=== PATIENT | female | born 1980 | race Caucasian/White ===

== ENCOUNTER 2017-07-22 18:13 | Emergency (ER) | payer OTHER, MEDICARE ==
[~2017-07-22] VITALS: Ht 157.5 cm; Wt 89.4 kg
[~2017-07-22 18:13] MED LIST: ALBUTEROL SULF8.5 GM INH; AMBIEN10 MG PO; AMOXICILLIN500 MG PO; AUGMENTIN 875-1 EACH PO; BENADRYL25 M1 PO; BYSTOLIC20 MG PO; CARAFATE1 GM/10 ML PO; COQ-10100 MG PO; COZAAR100 MG PO; CYMBALTA30 MG PO; CYMBALTA60 MG PO; D-RIBOSE1 GM PO; DIOVAN160 MG PO; EFFEXOR XR150 MG PO; FEOSOL325 MG PO; FOLIC ACID1 MG PO; FUROSEMIDE40 MG PO; GABAPENTIN300 MG PO; HUMIRA40 MG/0.8 SQ; IMURAN50 MG PO; L-CARNITINE500 M1 PO; LASIX40 MG PO; LEVOCETIRIZINE D5 MG PO; LOSARTAN POTAS100 MG PO; LYRICA75 MG PO; Lactobacillus Acidophilus PO; MAGNESIUM OXID400 MG PO; MELOXICAM15 MG PO; METOPROLOL TART50 MG PO; MICROBID PO; MOBIC15 MG PO; MONTELUKAST SOD10 MG PO; NEXIUM40 MG PO; ONDANSETRON HCL8 MG PO; PANTOPRAZOLE SO20 MG PO; PLAQUENIL200 MG PO; POTASSIUM CHLO10 MEQ PO; RANITIDINE HCL300 M1 PO; ROPINIROLE HCL1 MG PO; SEROQUEL50 MG PO; TIZANIDINE HCL4 MG PO; TOPAMAX100 MG PO; TOPROL XL50 MG PO; TRAZODONE HCL100 MG PO; ULTRAM50 MG PO; VALTREX500 MG PO; WELLBUTRIN100 MG PO; ZOFRAN ODT4 MG SL
--- OUTSIDE RECORDS SUMMARY | 2017-07-22 18:17 | XMS REPORT ---
Author Author [facility] Address Unknown Phone Unavailable Care Team Providers Care Account Executive Software Sales Name Role Phone DARRYL JORDAN Unavailable Unavailable Problems This patient has no known problems. Allergies, Adverse Reactions, Alerts This patient has no known allergies or adverse reactions. Medications This patient has no known medications. Results Test Description Test Time Test Comments Text Results Atomic Results Result Comments URINE CULTURE 2016-08-13 11:23:00 CULTURE (BEAKER) (test ozzu=0930) 40-49,000 col/mL skin twin CBC W/PLT COUNT & AUTO [id number] 06:35:00* Test Item Value Reference Range Comments WHITE BLOOD CELL COUNT (BEAKER) (test naed=355) 10.0 K/ L 4.0-10.0 RED BLOOD CELL COUNT (BEAKER) (test fffz=606) 4.16 M/ L 4.00-5.00 HEMOGLOBIN (BEAKER) (test muie=349) 13.0 GM/DL 12.0-15.0 HEMATOCRIT (BEAKER) (test nowg=873) 41.1 % 36.0-45.0 MEAN CORPUSCULAR VOLUME (BEAKER) (test wdpx=064) 98.7 fL 82.0-99.0 MEAN CORPUSCULAR HEMOGLOBIN (BEAKER) (test eych=738) 31.2 pg 27.0-33.0 MEAN CORPUSCULAR HEMOGLOBIN CONC (BEAKER) (test zhze=753) 31.6 GM/DL 32.0- 36.0 RED CELL DISTRIBUTION WIDTH (BEAKER) (test gvhv=337) 12.5 % 10.3-14.2 PLATELET COUNT (BEAKER) (test afnk=126) 315 K/CU MM 150-430 MEAN PLATELET VOLUME (BEAKER) (test mafo=763) 7.9 fL 6.5-10.5 NUCLEATED RED BLOOD CELLS (BEAKER) (test akbs=632) 0 /100 WBC 0-0 NEUTROPHILS RELATIVE PERCENT (BEAKER) (test atrw=640) 65 % LYMPHOCYTES RELATIVE PERCENT (BEAKER) (test qxzl=356) 28 % MONOCYTES RELATIVE PERCENT (BEAKER) (test rsgw=433) 6 % EOSINOPHILS RELATIVE PERCENT (BEAKER) (test ztsp=182) 1 % BASOPHILS RELATIVE PERCENT (BEAKER) (test wnry=691) 0 % NEUTROPHILS ABSOLUTE COUNT (BEAKER) (test dqxo=963) 6.47 K/ L 1.80-8.00 LYMPHOCYTES ABSOLUTE COUNT (BEAKER) (test crar=366) 2.79 K/ L 1.48-4.50 MONOCYTES ABSOLUTE COUNT (BEAKER) (test jrkw=215) 0.60 K/ L 0.00-1.30 EOSINOPHILS ABSOLUTE COUNT (BEAKER) (test vayx=407) 0.12 K/ L 0.00-0.50 BASOPHILS ABSOLUTE COUNT (BEAKER) (test vmee=649) 0.04 K/ L 0.00-0.20 0.00BASIC METABOLIC [id number] 06:25:00* Test Item Value Reference Range Comments SODIUM (BEAKER) (test ykgk=690) 138 meq/L 136-145 POTASSIUM (BEAKER) (test vfok=352) 4.1 meq/L 3.5-5.1 CHLORIDE (BEAKER) (test rsgd=640) 104 meq/L 98-107 CO2 (BEAKER) (test ccsz=563) 22 meq/L 22-29 BLOOD UREA NITROGEN (BEAKER) (test mvse=372) 7 mg/dL 7-21 CREATININE (BEAKER) (test bwjw=723) 0.73 mg/dL 0.57-1.25 GLUCOSE RANDOM (BEAKER) (test bayh=749) 118 mg/dL 70-105 CALCIUM (BEAKER) (test oiqc=804) 9.1 mg/dL 8.4-10.2 EGFR (BEAKER) (test wfab=0415) 90 mL/min/1.73 sq m ESTIMATED GFR IS NOT ACCURATE CREATININE CLEARANCE IN PREDICTING GLOMERULAR FILTRATION RATE. ESTIMATED GFR IS NOT APPLICABLE FOR DIALYSIS PATIENTS. URINALYSIS W/ [id number] 16:28:00* Test Item Value Reference Range Comments COLOR (BEAKER) (test vkia=512) Yellow CLARITY (BEAKER) (test xoji=098) Clear SPECIFIC GRAVITY UA (BEAKER) (test ibmb=582) 1.022 1.001-1.035 PH UA (BEAKER) (test gcqo=714) 6.5 5.0-8.0 PROTEIN UA (BEAKER) (test mmiq=924) 20 mg/dL Negative GLUCOSE UA (BEAKER) (test tjqe=331) Negative Negative KETONES UA (BEAKER) (test yghb=019) Negative Negative BILIRUBIN UA (BEAKER) (test keoj=399) Negative Negative BLOOD UA (BEAKER) (test hroa=543) Negative Negative NITRITE UA (BEAKER) (test plvq=940) Negative Negative LEUKOCYTE ESTERASE UA (BEAKER) (test oche=235) Small Negative UROBILINOGEN UA (BEAKER) (test gqbb=923) 0.2 mg/dL 0.2-1.0 RBC UA (BEAKER) (test xnfy=461) 1 /HPF WBC UA (BEAKER) (test reyk=425) 3 /HPF MUCUS (BEAKER) (test pzhe=7128) Few SQUAMOUS EPITHELIAL (BEAKER) (test zomz=778) 3 /HPF SOURCE(BEAKER) (test bwvn=5250) Urine, Voided BASIC METABOLIC [id number] 14:55:00* Test Item Value Reference Range Comments SODIUM (BEAKER) (test rswg=273) 139 meq/L 136-145 POTASSIUM (BEAKER) (test cxcv=504) 4.0 meq/L 3.5-5.1 CHLORIDE (BEAKER) (test rfnk=157) 105 meq/L 98-107 CO2 (BEAKER) (test pcag=210) 25 meq/L 22-29 BLOOD UREA NITROGEN (BEAKER) (test gkgn=599) 10 mg/dL 7-21 CREATININE (BEAKER) (test ahrh=749) 0.77 mg/dL 0.57-1.25 GLUCOSE RANDOM (BEAKER) (test iwvn=990) 117 mg/dL 70-105 CALCIUM (BEAKER) (test uuqc=619) 9.2 mg/dL 8.4-10.2 EGFR (BEAKER) (test wldl=2844) 85 mL/min/1.73 sq m ESTIMATED GFR IS NOT ACCURATE CREATININE CLEARANCE IN PREDICTING GLOMERULAR FILTRATION RATE. ESTIMATED GFR IS NOT APPLICABLE FOR DIALYSIS PATIENTS. CBC W/PLT COUNT & AUTO [id number] 14:52:00* Test Item Value Reference Range Comments WHITE BLOOD CELL COUNT (BEAKER) (test exzq=893) 11.6 K/ L 4.0-10.0 RED BLOOD CELL COUNT (BEAKER) (test ywae=197) 3.94 M/ L 4.00-5.00 HEMOGLOBIN (BEAKER) (test cyrw=936) 12.7 GM/DL 12.0-15.0 HEMATOCRIT (BEAKER) (test fomv=971) 37.0 % 36.0-45.0 MEAN CORPUSCULAR VOLUME (BEAKER) (test czfb=440) 94.0 fL 82.0-99.0 MEAN CORPUSCULAR HEMOGLOBIN (BEAKER) (test wsps=636) 32.2 pg 27.0-33.0 MEAN CORPUSCULAR HEMOGLOBIN CONC (BEAKER) (test zkvj=130) 34.2 GM/DL 32.0- 36.0 RED CELL DISTRIBUTION WIDTH (BEAKER) (test oofe=715) 13.1 % 10.3-14.2 PLATELET COUNT (BEAKER) (test vuaq=575) 302 K/CU MM 150-430 MEAN PLATELET VOLUME (BEAKER) (test qdpu=592) 7.7 fL 6.5-10.5 NUCLEATED RED BLOOD CELLS (BEAKER) (test zgcy=795) 0 /100 WBC 0-0 NEUTROPHILS RELATIVE PERCENT (BEAKER) (test uiwv=786) 73 % LYMPHOCYTES RELATIVE PERCENT (BEAKER) (test aneq=509) 21 % MONOCYTES RELATIVE PERCENT (BEAKER) (test pkgq=185) 5 % EOSINOPHILS RELATIVE PERCENT (BEAKER) (test jrjn=374) 1 % BASOPHILS RELATIVE PERCENT (BEAKER) (test yuat=705) 0 % NEUTROPHILS ABSOLUTE COUNT (BEAKER) (test ecjm=867) 8.40 K/ L 1.80-8.00 LYMPHOCYTES ABSOLUTE COUNT (BEAKER) (test xefa=986) 2.43 K/ L 1.48-4.50 MONOCYTES ABSOLUTE COUNT (BEAKER) (test arqn=507) 0.63 K/ L 0.00-1.30 EOSINOPHILS ABSOLUTE COUNT (BEAKER) (test yprm=713) 0.09 K/ L 0.00-0.50 BASOPHILS ABSOLUTE COUNT (BEAKER) (test hsof=182) 0.04 K/ L 0.00-0.20 0.00
--- OUTSIDE RECORDS SUMMARY | 2017-07-22 18:17 | XMS REPORT | Clinical Summary ---
Author Author [facility] Address Unknown Phone Unavailable Care Team Providers Care Cloud Consultant Name Role Phone PCP Unavailable Allergies Active Allergy Reactions Severity Noted Date Comments Ciprofloxacin Shortness Of Breath, Rash High 10/15/2015 Levofloxacin Shortness Of Breath, Rash High 08/11/2016 Current Medications Prescription Sig. Disp. Refills Start End Date Status Date predniSONE (DELTASONE) 5 Take 5 mg by mouth daily. Active MG tablet gabapentin (NEURONTIN) Take 1,200 mg by mouth 3 Active 600 MG tablet (three) times daily . rOPINIRole (REQUIP) 1 MG Take 1 mg by mouth 3 Active tablet (three) times daily. ondansetron (ZOFRAN) 8 MG Take 8 mg by mouth every Active tablet 8 (eight) hours as needed for Nausea. ranitidine (ZANTAC) 300 Take 300 mg by mouth Active MG tablet nightly. pregabalin (LYRICA) 100 Take 100 mg by mouth 3 Active MG capsuleIndications: (three) times daily. Fibromyalgia azaTHIOprine (IMURAN) 50 Take 50 mg by mouth 3 Active mg tablet (three) times daily. esomeprazole (NEXIUM) 40 Take 40 mg by mouth Active MG capsule daily. cyanocobalamin (VITAMIN Inject 1,000 mcg Active B-12) 1,000 mcg/mL intramuscularly every 30 injectionIndications: (thirty) days Next dose Vitamin B12 Deficiency due 08/12/16. dicyclomine (BENTYL) 10 Take 10 mg by mouth 4 Active MG capsule (four) times daily before meals and nightly. golimumab (SIMPONI) 50 Inject 50 mg Active mg/0.5 mL PnIj subcutaneously every 28 days On hold since june. valACYclovir (VALTREX) Take 500 mg by mouth Active 500 MG tablet daily. hydroxychloroquine Take 400 mg by mouth Active (PLAQUENIL) 200 mg tablet daily . amoxicillin (AMOXIL) 250 Take 250 mg by mouth Active MG capsule daily. sulfaSALAzine Take 500 mg by mouth 2 Active (AZULFIDINE) 500 mg (two) times daily. tablet baclofen (LIORESAL) 20 MG Take 20 mg by mouth 3 Active tablet (three) times daily. metoprolol (LOPRESSOR) Take 100 mg by mouth 2 Active 100 MG tablet (two) times daily. torsemide (DEMADEX) 20 MG Take 20 mg by mouth Active tablet daily. potassium chloride Take 10 mEq by mouth 2 Active (KLOR-CON) 10 MEQ CR (two) times daily. tablet acetaminophen-codeine Take 1 tablet by mouth Active (TYLENOL #3) 300-30 mg every 4 (four) hours as per tablet needed for Pain. albuterol HFA (VENTOLIN Inhale 2 puffs by mouth 1 Inhaler 0 10/16/19 10/16/19 HFA) 90 mcg/actuation via inhaler every 4 16 17 inhaler (four) hours as needed for Wheezing. sulfamethoxazole-trimetho Take 1 tablet (160 mg of 10 tablet 0 08/20/19 prim (BACTRIM DS) 800-160 trimethoprim total) by 17 17 mg per tablet mouth 2 (two) times daily for 5 days. Active Problems Problem Noted Date Kidney stone 08/11/2016 Encounters Date Type Specialty Care Team Description 10/15/2016 [facility] Radiology Mica Valentine MD Recurrent UTI Encounter 10/13/2016 Outside Orders Central Scheduling Mica Valentine MD Recurrent UTI (Primary Dx) 08/26/2016 Procedure visit Radiology Omaira Easton Ankylosing spondylitis ([facility]) 08/21/2016 Outside Orders Radiology Omaira Easton Ankylosing spondylitis ([facility]) (Primary Dx) 08/13/2016 Hospital Mich Kerr MD Encounter 08/13/2016 Surgery Mich Kerr MD CYSTOSCOPY,URETEROSCOPY W/ LASER LITHOTRIPSY 08/12/2016 Anesthesia Wilma Olivia Event MD 08/11/2016 [facility] General Internal Medicine Mich Kerr MD - Encounter 08/14/2016 after 07/21/2016 Social History Tobacco Use Types Packs/Day Years Used Date Never Smoker Alcohol Use Drinks/Week oz/Week Comments No Sex Assigned at Date Recorded Not on file Last Filed Vital Signs Vital Sign Reading Time Taken Blood Pressure 148/81 10/15/2016 9:15 AM CDT Pulse 84 10/15/2016 7:32 AM CDT Temperature 36.8 C (98.3 F) 10/15/2016 7:32 AM CDT Respiratory Rate 20 10/15/2016 9:15 AM CDT Oxygen Saturation 98% 10/15/2016 9:15 AM CDT Inhaled Oxygen - - Concentration Weight 128.5 kg (283 lb 6.4 oz) 08/11/2016 1:25 PM SHALE PROCESSING TECHNICIAN Height 158.5 cm (5' 2.4") 08/11/2016 1:25 PM SHALE PROCESSING TECHNICIAN Body Mass Index 51.17 08/11/2016 1:25 PM SHALE PROCESSING TECHNICIAN Plan of Treatment Not on file Implants Implanted Type Area Horse Stud Worker Device Expiration Model / Identifier Date Serial / Lot Stent Uret Cntour Inj [id number] Uro Stent [employer] 08/12/2017 [id number] / [id number] - [id number] SCI:UROLOGY/COST ESTIMATOR / [place]planted: Qty: 1 on 08/13/2016 [place] [facility] [id number] Mich Kerr MD Procedures Procedure Name Priority Date/Time Associated Diagnosis Comments CYSTOSCOPY,INSERTION 08/13/2016 Kidney stones URETERAL STENTS 2:00 PM SHALE PROCESSING TECHNICIAN CYSTOSCOPY,URETEROSCOPY 08/13/2016 Kidney stones W/ LASER LITHOTRIPSY 2:00 PM SHALE PROCESSING TECHNICIAN after 07/21/2016 Results * IR Picc Line Placement (10/15/2016 9:15 AM) Specimen Performing Laboratory [facility] Narrative FINAL REPORT PICC line placement 10/15/2016 HISTORY: The long-term antibiotics Anesthesia: 2% lidocaine Approach: Left basilic vein Modality: Ultrasound and fluoroscopy, fluoroscopy time: 0.4 minutes, total dose: 14 mGy, air kerma dose method TECHNIQUE: This procedure was performed after obtaining written informed consent using all elements maximal sterile barrier technique without immediate postprocedural complication. The basilic vein was identified with ultrasound and found be patent. Images of the patent vein were recorded on PACS. The basilic vein was accessed with real-time ultrasound guidance followed by placement of a guidewire centrally. Surgically, 4 [place]ian single lumen PICC line was placed with its tip at the cavoatrial junction secured in place by means of sutures.. CONCLUSION: Placement of left arm PICC line Signed: Lyndon Lezama MD Report Verified Date/Time:10/23/2016 17:31:07 Reading Location: [place] [address] Angio Body Reading Room Procedure Note Interface, External Ris In - 10/23/2016 5:33 PM CDT FINAL REPORT PICC line placement 10/15/2016 HISTORY: The long-term antibiotics Anesthesia: 2% lidocaine Approach: Left basilic vein Modality: Ultrasound and fluoroscopy, fluoroscopy time: 0.4 minutes, total dose: 14 mGy, air kerma dose method TECHNIQUE: This procedure was performed after obtaining written informed consent using all elements maximal sterile barrier technique without immediate postprocedural complication. The basilic vein was identified with ultrasound and found be patent. Images of the patent vein were recorded on PACS. The basilic vein was accessed with real-time ultrasound guidance followed by placement of a guidewire centrally. Surgically, 4 [place]ian single lumen PICC line was placed with its tip at the cavoatrial junction secured in place by means of sutures.. CONCLUSION: Placement of left arm PICC line Signed: Lyndon Lezama MD Report Verified Date/Time: 10/23/2016 17:31:07 Reading Location: [place] [address] Angio Body Reading Room * MR spine lumbar without IV contrast (08/26/2016 5:22 PM) Specimen Performing Laboratory [facility] Narrative FINAL REPORT MR Lumbar spine without contrast INDICATION: Ankylosing spondylosis. TECHNIQUE: MRI of the lumbar spine utilizing the following sequences: Sagittal T1, T2, STIR; axial T1 and T2 COMPARISON: None available. FINDINGS: Bilateral sacroiliac joint partially imaged signal abnormalities could indicate sacroiliitis. Slight anterior longitudinal ligament conspicuity and vertebral squaring are nonspecific but can be seen with ankylosing spondylitis. Vertebral height and alignment are maintained. There is nonspecific heterogeneous marrow signal with incidental small hemangioma at L3. The conus medullaris is unremarkable and terminates at L1-2. The spinal canal is borderline congenitally narrow. T12-L1: Unremarkable L1-2: Unremarkable L2-3: Unremarkable L3-4: Mild disc bulge extending into the foraminal regions, bilateral facet arthropathy and ligamentous thickening with mild left greater than right foraminal stenosis. No significant canal stenosis. L4-5: Mild disc bulge. Bilateral facet arthropathy and ligamentous thickening contributing to mild canal stenosis and mild bilateral foraminal stenosis. L5-S1: Disc bulge, broad based central disc protrusion indenting the thecal sac, and mild facet arthropathy with mild right foraminal stenosis. No significant canal or left foraminal stenosis. There is paraspinal muscle deconditioning. A small left renal T2 hyperintense lesion is incompletely characterized, but statistically likely a cyst. IMPRESSION: 1. Incompletely imaged sacroiliac joint signal alterations which could reflect sacroiliitis given clinical history of ankylosing spondylitis. Dedicated pelvic imaging can be obtained as clinically warranted. 2. Mild degenerative changes with multifactorial mild L4-5 spinal canal stenosis. 3. Neural foraminal stenoses as detailed above. Advise correlation with radiculopathic symptoms. Signed: Fauzia Morrison MD Report Verified Date/Time:08/26/2016 17:35:06 Reading Location: [facility] Radiology Reading Room Procedure Note Interface, External Ris In - 08/26/2016 5:37 PM CDT FINAL REPORT MR Lumbar spine without contrast INDICATION: Ankylosing spondylosis. TECHNIQUE: MRI of the lumbar spine utilizing the following sequences: Sagittal T1, T2, STIR; axial T1 and T2 COMPARISON: None available. FINDINGS: Bilateral sacroiliac joint partially imaged signal abnormalities could indicate sacroiliitis. Slight anterior longitudinal ligament conspicuity and vertebral squaring are nonspecific but can be seen with ankylosing spondylitis. Vertebral height and alignment are maintained. There is nonspecific heterogeneous marrow signal with incidental small hemangioma at L3. The conus medullaris is unremarkable and terminates at L1-2. The spinal canal is borderline congenitally narrow. T12-L1: Unremarkable L1-2: Unremarkable L2-3: Unremarkable L3-4: Mild disc bulge extending into the foraminal regions, bilateral facet arthropathy and ligamentous thickening with mild left greater than right foraminal stenosis. No significant canal stenosis. L4-5: Mild disc bulge. Bilateral facet arthropathy and ligamentous thickening contributing to mild canal stenosis and mild bilateral foraminal stenosis. L5-S1: Disc bulge, broad based central disc protrusion indenting the thecal sac, and mild facet arthropathy with mild right foraminal stenosis. No significant canal or left foraminal stenosis. There is paraspinal muscle deconditioning. A small left renal T2 hyperintense lesion is incompletely characterized, but statistically likely a cyst. IMPRESSION: 1. Incompletely imaged sacroiliac joint signal alterations which could reflect sacroiliitis given clinical history of ankylosing spondylitis. Dedicated pelvic imaging can be obtained as clinically warranted. 2. Mild degenerative changes with multifactorial mild L4-5 spinal canal stenosis. 3. Neural foraminal stenoses as detailed above. Advise correlation with radiculopathic symptoms. Signed: Fauzia Morrison MD Report Verified Date/Time: 08/26/2016 17:35:06 Reading Location: [facility] Radiology Reading Room * [place] Company Doctor in [place] 30 minute increments (08/13/2016 4:05 PM) Specimen Performing Laboratory [facility] Narrative FINAL REPORT 66 abdomen fluoroscopic images. Fluoroscopy time 1.09 minutes. Fluoroscopy was not performed by the undersigned. Refer to procedure notes for diagnostic and therapeutic detail. There is eventual right ureteral stent placement. Signed: Zi Pandya MD Report Verified Date/Time:08/13/2016 16:52:37 Reading Location: [facility] C013 Consult Reading Room Procedure Note Interface, External Ris In - 08/13/2016 4:54 PM SHALE PROCESSING TECHNICIAN FINAL REPORT 66 abdomen fluoroscopic images. Fluoroscopy time 1.09 minutes. Fluoroscopy was not performed by the undersigned. Refer to procedure notes for diagnostic and therapeutic detail. There is eventual right ureteral stent placement. Signed: Zi Pandya MD Report Verified Date/Time: 08/13/2016 16:52:37 Reading Location: [facility] [id number] Consult Reading Room * CBC with platelet count + automated diff (08/12/2016 5:21 AM) Only the most recent of 2 results within the time period is included. Component Value Ref Range WBC 10.0 4.0 - 10.0 K/ L RBC 4.16 4.00 - 5.00 M/ L Hemoglobin 13.0 12.0 - 15.0 GM/DL Hematocrit 41.1 36.0 - 45.0 % MCV 98.7 82.0 - 99.0 fL MCH 31.2 27.0 - 33.0 pg MCHC 31.6 (L) 32.0 - 36.0 GM/DL RDW 12.5 10.3 - 14.2 % Platelets 315 150 - 430 K/CU MM MPV 7.9 6.5 - 10.5 fL nRBC 0 0 - 0 /100 WBC % Neutros 65 % % Lymphs 28 % % Monos 6 % % Eos 1 % % Baso 0 % # Neutros 6.47 1.80 - 8.00 K/ L # Lymphs 2.79 1.48 - 4.50 K/ L # Monos 0.60 0.00 - 1.30 K/ L # Eos 0.12 0.00 - 0.50 K/ L # Baso 0.04 0.00 - 0.20 K/ L Specimen Performing Laboratory Blood [facility] [address] [address] Narrative 0.00 * CBC with platelet count + automated diff (08/12/2016 5:21 AM) Only the most recent of 2 results within the time period is included. Specimen Performing Laboratory Blood Narrative The following orders were created for panel order CBC with platelet count + automated diff. Procedure Abnormality Status --------- - ------ CBC with platelet count ...[[id number]]AbnormalFinal result Please view results for these tests on the individual orders. * Basic Metabolic Panel (08/12/2016 5:21 AM) Only the most recent of 2 results within the time period is included. Component Value Ref Range Sodium 138 136 - 145 meq/L Potassium 4.1 3.5 - 5.1 meq/L Chloride 104 98 - 107 meq/L CO2 22 22 - 29 meq/L BUN 7 7 - 21 mg/dL Creatinine 0.73 0.57 - 1.25 mg/dL Glucose 118 (H) 70 - 105 mg/dL Calcium 9.1 8.4 - 10.2 mg/dL EGFR 90Comment: ESTIMATED GFR IS NOT ACCURATE mL/min/1.73 sq m CREATININE CLEARANCE IN PREDICTING GLOMERULAR FILTRATION RATE. ESTIMATED GFR IS NOT APPLICABLE FOR DIALYSIS PATIENTS. Specimen Performing Laboratory Blood [address] [address] * Urinalysis w/ Microscopic (08/11/2016 3:30 PM) Component Value Ref Range Color, UA Yellow Clarity, UA Clear Specific [place], UA 1.022 1.001 - 1.035 pH, UA 6.5 5.0 - 8.0 Protein, UA 20 mg/dL (A) Negative Glucose, UA Negative Negative Ketones, UA Negative Negative Bilirubin, UA Negative Negative Blood, UA Negative Negative Nitrite, UA Negative Negative Leukocytes, UA Small (A) Negative Urobilinogen, UA 0.2 0.2 - 1.0 mg/dL RBC, UA 1 /HPF WBC, UA 3 /HPF Mucus Few Squam Epithel, UA 3 /HPF Specimen Source Urine, Voided Specimen Performing Laboratory Urine - Urine, Voided [address] [address] * Urine culture (08/11/2016 3:30 PM) Component Value Ref Range Result 40-49,000 col/mL skin twin Specimen Performing Laboratory Urine - Urine, Voided [address] [address] after 07/21/2016
--- OUTSIDE RECORDS SUMMARY | 2017-07-22 18:17 | XMS REPORT | Clinical Summary ---
Author Author [facility] Organization [facility] Address Unknown Phone Unavailable Care Team Providers Care Architectural Examiner Name Role Phone Alcon Gonzales DO PCP Allergies Active Allergy Reactions Severity Noted Date Comments Ciprofloxacin Rash, Shortness Of Breath High 10/15/2015 Adhesive Tape-Silicones Itching, Rash Low 04/13/2017 Levofloxacin Rash Low 02/25/2017 Swelling and trouble breathing Current Medications Prescription Sig. Disp. Refills Start End Date Status Date valACYclovir (VALTREX) Take 500 mg by mouth Active 500 MG tablet nightly. fluticasone (FLONASE) 50 2 sprays by Each Nare Active mcg/actuation nasal spray route every morning. levocetirizine (XYZAL) 5 Take 5 mg by mouth every Active MG tablet morning. cyanocobalamin 1,000 Inject 1,000 mcg into the Active mcg/mL injection shoulder, thigh, or buttocks every 30 (thirty) days. gabapentin (NEURONTIN) Take 1,200 mg by mouth 3 Active 600 mg tablet (three) times a day. rOPINIRole (REQUIP) 1 MG Take 1 mg by mouth 3 Active tablet (three) times a day. pregabalin (LYRICA) 100 Take 100 mg by mouth 3 Active MG capsule (three) times a day. baclofen (LIORESAL) 20 MG Take 20 mg by mouth 3 Active tablet (three) times a day as needed for muscle spasms. golimumab (SIMPONI) 50 Inject 1 Dose under the Active mg/0.5 mL syringe skin every 30 (thirty) days. metoprolol tartrate Take 100 mg by mouth 2 Active (LOPRESSOR) 100 mg tablet (two) times a day. montelukast (SINGULAIR) Take 10 mg by mouth Active 10 mg tablet nightly. hydroxychloroquine Take 200 mg by mouth 2 Active (PLAQUENIL) 200 mg tablet (two) times a day. potassium chloride Take 10 mEq by mouth 2 Active (KLOR-CON) 10 MEQ CR (two) times a day. tablet FOLIC ACID ORAL Take 10 mg by mouth every Active morning. torsemide (DEMADEX) 20 MG Take 20 mg by mouth every Active tablet morning. spironolactone Take 25 mg by mouth every Active (ALDACTONE) 25 MG tablet morning. omeprazole (PriLOSEC) 40 Take 1 capsule (40 mg 30 capsule 5 04/13/20 10/11/19 Active MG capsuleIndications: total) by mouth daily for 17 18 Morbid obesity due to 180 days. excess calories, Benign essential hypertension, Obstructive sleep apnea syndrome, Gastroesophageal reflux disease without esophagitis, Hyperlipidemia, unspecified hyperlipidemia type azaTHIOprine (IMURAN) 50 Take 50 mg by mouth Active mg tablet daily. HYDROcodone-acetaminophen TAKE 15 ML(S) BY MOUTH 0 04/17/20 Active (HYCET) 2.5-108.3 mg/5 mL EVERY 6 HOURS NEEDED 17 solution FOR PAIN. NON FORMULARY Bariatric multivitamin, Active iron, calcium CALCIUM CARBONATE/VITAMIN Take by mouth. Active D3 (CALCIUM 500 + D ORAL) IRON,CARB/VIT C/VIT Take by mouth. Active B12/FOLIC (IRON 100 PLUS ORAL) ondansetron (ZOFRAN) 8 MG Take 8 mg by mouth every 05/29/20 Discontin tablet 8 (eight) hours as needed 17 ued for nausea or vomiting. eszopiclone (LUNESTA) 2 Take 2 mg by mouth 04/21/20 Discontin MG tablet nightly. Take immediately 17 ued before bedtime ranitidine (ZANTAC) 300 Take 300 mg by mouth 04/29/20 Discontin MG capsule every evening. 17 ued esomeprazole (NexIUM) 40 Take 40 mg by mouth daily 04/29/20 Discontin MG capsule before breakfast. 17 ued dicyclomine (BENTYL) 10 Take 10 mg by mouth 4 04/29/20 Discontin MG capsule (four) times a day before 17 ued meals and nightly. DULoxetine (CYMBALTA) 30 Take 30 mg by mouth every 05/15/20 Discontin MG capsule morning. 17 ued sulfaSALAzine Take 500 mg by mouth 2 04/21/20 Discontin (AZULFIDINE) 500 mg (two) times a day. 17 ued tablet enoxaparin (LOVENOX) 40 Inject 0.4 mL (40 mg 14 Syringe 0 04/13/20 04/27/20 mg/0.4 mL total) under the skin 17 17 syringeIndications: daily for 14 days. Morbid obesity due to excess calories, Benign essential hypertension, Obstructive sleep apnea syndrome, Gastroesophageal reflux disease without esophagitis, Hyperlipidemia, unspecified hyperlipidemia type ondansetron (ZOFRAN, Take 1 tablet (4 mg 20 tablet 0 04/13/2009/01 Discontin HYDROCHLORIDE,) 4 MG total) by mouth every 8 17 17 ued tabletIndications: Morbid (eight) hours as needed obesity due to excess for nausea or vomiting. calories, Benign essential hypertension, Obstructive sleep apnea syndrome, Gastroesophageal reflux disease without esophagitis, Hyperlipidemia, unspecified hyperlipidemia type promethazine (PHENERGAN) Take 1 tablet (25 mg 30 tablet 0 04/13/20 05/13/20 25 MG tabletIndications: total) by mouth every 6 17 17 Morbid obesity due to (six) hours as needed for excess calories, Benign nausea or vomiting for up essential hypertension, to 30 days. Obstructive sleep apnea syndrome, Gastroesophageal reflux disease without esophagitis, Hyperlipidemia, unspecified hyperlipidemia type golimumab 50 mg/0.5 mL Inject 50 mg under the 04/21/20 Discontin pen injector skin. 17 ued hydroxychloroquine Take 400 mg by mouth. 04/21/20 Discontin (PLAQUENIL) 200 mg tablet 17 ued promethazine (PHENERGAN) Take 25 mg by mouth every 05/17/20 Discontin 25 MG tablet 6 (six) hours as needed 17 ued for nausea or vomiting. rivaroxaban (XARELTO) 20 Take 1 tablet (20 mg 30 tablet 2 05/17/20 06/16/19 mg tablet total) by mouth daily for 17 18 30 days. promethazine (PHENERGAN) Take 1 tablet (25 mg 30 tablet 0 05/29/20 06/28/19 25 MG tabletIndications: total) by mouth every 6 17 18 Non-intractable vomiting (six) hours as needed for with nausea, unspecified nausea or vomiting for up vomiting type to 30 days. Hospital, Clinic, or Ordered Dose Route Frequency Start End Date Status Other Facility Date Administered Medication potassium chloride 20 MEQ oral Once 05/17/20 Active (K-DUR) CR tablet 20 mEq 17 Active Problems Problem Noted Date S/P gastric bypass 04/21/2017 Encounters Date Type Specialty Care Team Description 07/21/2017 Emergency Emergency Medicine Cruz Ruiz MD Chest pain, unspecified - type (Primary Dx) 07/22/2017 07/21/2017 Telephone General Surgery Lacey Benson PA 07/21/2017 Telephone General Surgery Lacey Benson PA 05/29/2017 Office Visit General Surgery Lacey Benson PA Intestinal malabsorption, unspecified type (Primary Dx);Weight loss;Iron deficiency anemia, unspecified iron deficiency anemia type;Gastroesophageal reflux disease without esophagitis;Essential hypertension, benign;Fibromyalgia;Obstr uctive sleep apnea;Hyperlipidemia, unspecified hyperlipidemia type;Non-intractable vomiting with nausea, unspecified vomiting type 05/18/2017 Telephone General Surgery Lacey Benson PA 05/15/2017 Emergency Orthopedic Surgery James Aguilar MD S/P gastric bypass - Enrique Milligan MD (Primary Dx) 05/17/2017 04/29/2017 Office Visit General Surgery Lacey Benson PA S/P bariatric surgery (Primary Dx);BMI 40.0-44.9, adult;Obstructive sleep apnea;Essential hypertension;Gastroesopha geal reflux disease without esophagitis;Fibromyalgia 04/22/2017 Patient Quality Lara Herrmann RN Outreach 04/21/2017 [facility] General Surgery Enrique Milligan MD - Encounter 04/22/2017 04/21/2017 Procedure Pass General Surgery 04/21/2017 Surgery General Surgery Enrique Milligan MD LAPROSCOPIC TAMEKA -EN-Y GASTRIC BYPASS W/ INTRAOPERATIVE ENDOSCOPY 04/20/2017 Anesthesia General Surgery Caro Serrato APRN Event 04/20/2017 Orders Only General Surgery Ilsa Suarez MD 04/13/2017 Pre-Admit Pre-Admission Testing Enrique Milligan MD Pre-op testing (Primary Testing Dx) Appointment 04/13/2017 Office Visit General Surgery Enrique Milligan MD Morbid obesity due to excess calories (Primary Dx);Benign essential hypertension;Obstructive sleep apnea syndrome;Gastroesophageal reflux disease without esophagitis;Hyperlipidemi a, unspecified hyperlipidemia type 02/25/2017 Office Visit General Surgery Enrique Milligan MD Morbid obesity due to excess calories (Primary Dx);Essential hypertension;Hyperlipidem ia, unspecified hyperlipidemia type;Obstructive sleep apnea;Gastroesophageal reflux disease, esophagitis presence not specified after 07/21/2016 Family History Medical History Relation Name Comments [place]'s disease Maternal Grandfather Arthritis Maternal Grandmother Diabetes Maternal Grandmother Hypertension Maternal Grandmother Ulcers Maternal Grandmother Diabetes Mother Hypertension Mother Kidney disease Mother Stroke Mother Relation Name Status Comments Maternal Grandfather Maternal Grandmother Alive Mother Alive Social History Tobacco Use Types Packs/Day Years Used Date Never Smoker Smokeless Tobacco: Never Used Alcohol Use Drinks/Week oz/Week Comments No Sex Assigned at Date Recorded Not on file Last Filed Vital Signs Vital Sign Reading Time Taken Blood Pressure 130/76 07/21/2017 11:15 PM [facility] Pulse 76 07/21/2017 11:15 PM [facility] Temperature 36.8 C (98.2 F) 07/21/2017 4:45 PM [facility] Respiratory Rate 18 07/21/2017 11:15 PM [facility] Oxygen Saturation 97% 07/21/2017 11:15 PM [facility] Inhaled Oxygen - - Concentration Weight 101 kg (221 lb 9.6 oz) 05/29/2017 9:41 AM [facility] Height 157.5 cm (5' 2") 07/21/2017 4:56 PM [facility] Body Mass Index 40.53 05/29/2017 9:41 AM [facility] Plan of Treatment Date Type Specialty Care Team Description 08/07/2017 Office Visit General Surgery Lacey Benson PA [address] [place] [address] 10/28/2017 Office Visit General Surgery Enrique Milligan MD [address] [address] [phone] Health Maintenance Due Date Last Done Comments PAP SMEAR 09/25/2000 INFLUENZA VACCINE Completed 03/23/2017, 04/01/2016, 03/26/2015, Additional history exists Procedures Procedure Name Priority Date/Time Associated Diagnosis Comments SD AN ELECTIVE Routine 04/21/2017 ENDOTRACHEAL AIRWAY 10:53 AM [facility] Procedure Note - Cindy Arzola CRNA - 04/21/2017 10:47 AM [facility] Airway Date/Time: 04/21/2017 10:23 AM Performed by: CINDY ARZOLA Authorized by: AVERY EVANS Location: OR Urgency: Elective Difficult Airway: No Anesthesio logist: AVERY EVANS Resident/C RNA: CINDY ARZOLA Preoxygena eliel with 100% O2: Yes (x2 mins in reverse trendelenb urg) C-spine Precaution s Maintained Throughout : Yes Mask Ventilatio n: Not attempted (RSI) Final Airway Type: Endotrache al airway Final Endotrache al Airway: ETT Cuffed: Yes Technique Used: Direct laryngosco py Devices/Me thods Used in Placement: Intubatin g stylet and cricoid pressure (Held until ETCO2 confirm x 5) Insertion Site: Oral Blade Type: Sorto Laryngosco pe Blade/Vide olaryngosc ope Blade Size: 2 ETT Size (mm): 7.0 Cuff at minimum occlusion pressure: Yes Measured from: Teeth ETT to Teeth (cm): 23 Placement Verified by: CO2 detection, direct visualizat ion and equal breath sounds Laryngosco pic view: Grade I - full view of glottis Rapid Sequence Induction (RSI): Yes Modified RSI: No Number of Attempts at Approach: [address] Odalys berkowitz MD () under the supervisio n of dr Emanuel MDA. Eyes taped at LOC and prior to any airway manipulati on. Lips and teeth intact as per pre-op. LAPROSCOPIC TAMEKA-EN-Y 04/21/2017 Morbid obesity GASTRIC BYPASS W/ 10:30 AM [facility] INTRAOPERATIVE ENDOSCOPY Case Notes BMI 45.4 Special Needs BMI 45.4 after 07/21/2016 Results * CT Angiogram Pe Chest (07/21/2017 10:55 PM) Only the most recent of 2 results within the time period is included. Specimen Performing Laboratory [facility] [address] [place] [address] ANGIOGRAM PE CHEST CLINICAL INDICATION: chest pain with prior PE COMPARISON:CTA 05/15/2017. TECHNIQUE:CT angiographic images of the chest were obtained during intravenous administration of iodinated contrast.Computerized, reformatted images and 3-D MIP images were obtained and archived (per CT pulmonary embolism protocol). CT scans are performed using radiation dose reduction techniques (iterative reconstruction and/or automated exposure control). Technical factors are evaluated and adjusted to ensure appropriate moderation of exposure. Automated dose management technology is applied to adjust radiation exposure while achieving a diagnostic quality image. FINDINGS: Pulmonary arteries: Diagnostic quality of study is adequate for the evaluation of pulmonary embolism. There is no evidence of acute or chronic pulmonary embolism. Previously seen left lower lobe subsegmental pulmonary embolus is not conspicuous on the current examination. No evidence of right heart strain. The main pulmonary artery measures 21 mm in luminal diameter. Aorta:No aneurysm or dissection. Lungs and large airways:Clear. Pleura:No pleural effusion, pleural thickening, or pneumothorax. Heart and pericardium:Heart size is normal. No pericardial effusion. Mediastinum and jack:No mass or hematoma. Lymph nodes:No pathological adenopathy in the jack, axilla or mediastinum. Chest wall:Unremarkable. Bones:No acute osseous abnormalities. Upper abdomen: Status post cholecystectomy. Postsurgical changes of the stomach. IMPRESSION: 1. Negative CTA examination for pulmonary embolism. Previously seen left lower lobe subsegmental pulmonary embolus is not conspicuous on the current examination and has likely resolved. 2. Lungs without focal or confluent airspace consolidation. [facility]-[id number] Procedure Note [facility], Radiology Results Incoming - 07/21/2017 11:[address] [facility] [address] ANGIOGRAM PE CHEST CLINICAL INDICATION: chest pain with prior PE COMPARISON: CTA 05/15/2017. TECHNIQUE: CT angiographic images of the chest were obtained during intravenous administration of iodinated contrast. Computerized, reformatted images and 3-D MIP images were obtained and archived (per CT pulmonary embolism protocol). CT scans are performed using radiation dose reduction techniques (iterative reconstruction and/or automated exposure control). Technical factors are evaluated and adjusted to ensure appropriate moderation of exposure. Automated dose management technology is applied to adjust radiation exposure while achieving a diagnostic quality image. FINDINGS: Pulmonary arteries: Diagnostic quality of study is adequate for the evaluation of pulmonary embolism. There is no evidence of acute or chronic pulmonary embolism. Previously seen left lower lobe subsegmental pulmonary embolus is not conspicuous on the current examination. No evidence of right heart strain. The main pulmonary artery measures 21 mm in luminal diameter. Aorta: No aneurysm or dissection. Lungs and large airways: Clear. Pleura: No pleural effusion, pleural thickening, or pneumothorax. Heart and pericardium: Heart size is normal. No pericardial effusion. Mediastinum and jack: No mass or hematoma. Lymph nodes: No pathological adenopathy in the jack, axilla or mediastinum. Chest wall: Unremarkable. Bones: No acute osseous abnormalities. Upper abdomen: Status post cholecystectomy. Postsurgical changes of the stomach. IMPRESSION: 1. Negative CTA examination for pulmonary embolism. Previously seen left lower lobe subsegmental pulmonary embolus is not conspicuous on the current examination and has likely resolved. 2. Lungs without focal or confluent airspace consolidation. [facility]-[id number] * Estimated GFR (07/21/2017 10:43 PM) Only the most recent of 7 results within the time period is included. Component Value Ref Range GFR Non Af Amer >90 mL/min/1.73 m2 GFR Af Amer >90 mL/min/1.73 m2 Comment: Chronic kidney disease: <60 mL/min/1.73m2 Kidney failure: <15 mL/min/1.73m2 The estimated GFR is calculated from the IDMS-traceable Modification of Diet in Renal Disease Equation. The accuracy of the calculation is poor when the creatinine is normal. Calculated values >90 mL/min/1.73m2 are not reported. This equation has not been validated in children (<18 years), women, the elderly (>70 years), or ethnic groups other than Caucasians and Americans. Specimen Performing Laboratory Plasma specimen [facility] DEPARTMENT OF PATHOLOGY AND GENOMIC MEDICINE [address] [place] [id number] * Troponin (07/21/2017 10:43 PM) Only the most recent of 2 results within the time period is included. Component Value Ref Range Troponin <0.30 0.00 - 0.30 ng/mL Comment: 0.30 - 1.49 ng/ml May indicate increased risk of acute coronary syndrome. >=1.5 ng/ml Consistent with acute myocardial infarction. The diagnostic value of a single normal or non-diagnostic result is questionable. Serial samples at 2-6 hour intervals are required to rule out acute myocardial injury. Specimen Performing Laboratory Plasma specimen [facility] DEPARTMENT OF PATHOLOGY AND GENOMIC MEDICINE [address] [place] [id number] * Partial thromboplastin time, activated (07/21/2017 10:43 PM) Only the most recent of 3 results within the time period is included. Component Value Ref Range PTT 41.9 (H) 23.0 - 36.0 sec Comment: PTT therapeutic range for unfractionated heparin is 61.0-112.0 seconds which corresponds to Anti-Xa 0.3-0.7 U/ml. Specimen Performing Laboratory Blood [facility] DEPARTMENT OF PATHOLOGY AND [facility] [address] [place] [id number] * Prothrombin time with INR (07/21/2017 10:43 PM) Component Value Ref Range Prothrombin time 22.3 (H) 12.0 - 15.0 sec INR 1.9 Comment: The International Normalized Ratio (INR) is a therapeutic monitoring tool for patients who are stable on oral anticoagulant therapy. An INR of 2.0-3.0 is suggested for deep vein thrombosis/pulmonary embolism. Specimen Performing Laboratory Blood [facility] DEPARTMENT OF PATHOLOGY AND [facility] [address] [place] [id number] * D-dimer (07/21/2017 10:43 PM) Component Value Ref Range D-dimer <0.27 0.00 - 0.40 ug/mL FEU Comment: Units are ug/ml Fibrinogen Equivalent Unit. When combined with low clinical probability, D-dimer results of less than 0.5 ug/ml FEU have a good negative predictive value in excluding PE or DVT. For D-dimer results greater than 0.5 ug/ml FEU further testing is indicated if PE or DVT is suspected clinically. Elevated D-dimer results have been reported in DVT, PE, and DIC cases and may indicate the presence of a clot. D-dimer results may be elevated due to old age, , inflammatory diseases, trauma, post-operative states, sepsis, and malignancies. Specimen Performing Laboratory Blood [facility] DEPARTMENT OF PATHOLOGY AND [facility] [address] [place] [id number] * Lipase level (07/21/2017 10:43 PM) Only the most recent of 2 results within the time period is included. Component Value Ref Range Lipase 14 13 - 60 U/L Specimen Performing Laboratory Plasma specimen [facility] DEPARTMENT OF PATHOLOGY AND GENOMIC MEDICINE [address] [place] [id number] * Comprehensive metabolic panel (07/21/2017 10:43 PM) Only the most recent of 3 results within the time period is included. Component Value Ref Range Sodium 142 135 - 148 mEq/L Potassium 3.0 (LL) 3.5 - 5.0 mEq/L Chloride 102 98 - 112 mEq/L CO2 25 24 - 31 mEq/L Anion gap 15 7 - 15 mEq/L Comment: Starting from September , anion gap calculation no longer incorporates potassium. Please note the change. BUN 9 6 - 20 mg/dL Creatinine 0.6 0.5 - 0.9 mg/dL Glucose 86 65 - 99 mg/dL Calcium 9.0 8.3 - 10.2 mg/dL Protein 6.6 6.3 - 8.3 g/dL Comment: [place] 4.6-7.0 g/dL 1 week 4.4-7.6 g/dL 7 months-1year 5.1-7.3 g/dL 1-2 years 5.6-7.5 g/dL >3 years 6.0-8.0 g/dL 18-150 6.3-8.3 g/dL Albumin 3.3 (L) 3.5 - 5.0 g/dL A/G ratio 1.0 0.7 - 3.8 Alkaline phosphatase 92 35 - 104 U/L AST 17 10 - 35 U/L ALT 13 5 - 50 U/L Total bilirubin 0.3 0.0 - 1.2 mg/dL Specimen Performing Laboratory Plasma specimen [facility] DEPARTMENT OF PATHOLOGY AND GENOMIC MEDICINE [address] [place] [address] * CBC with platelet and differential (07/21/2017 8:19 PM) Only the most recent of 6 results within the time period is included. Component Value Ref Range WBC 10.40 4.50 - 11.00 k/uL RBC 4.23 4.20 - 5.50 m/uL HGB 12.8 12.0 - 16.0 g/dL HCT 39.1 37.0 - 47.0 % MCV 92.4 82.0 - 100.0 fL MCH 30.3 27.0 - 34.0 pg MCHC 32.7 31.0 - 37.0 g/dL RDW - SD 46.8 37.0 - 55.0 fL MPV 11.8 8.8 - 13.2 fL Platelet count 257 150 - 400 k/uL Nucleated RBC 0.00 /100 WBC Neutrophils 69.6 (H) 39.0 - 69.0 % Lymphocytes 23.6 (L) 25.0 - 45.0 % Monocytes 5.7 0.0 - 10.0 % Eosinophils 0.4 0.0 - 5.0 % Basophils 0.3 0.0 - 1.0 % Immature granulocytes 0.4Comment: "Immature granulocytes" 0.0 - 1.0 % (promyelocytes, myelocytes, metamyelocytes) Specimen Performing Laboratory Blood [facility] DEPARTMENT OF PATHOLOGY AND [facility] [address] [place] [id number] * B natriuretic peptide (07/21/2017 8:19 PM) Component Value Ref Range BNP 13 0 - 100 pg/mL Specimen Performing Laboratory Blood [facility] DEPARTMENT OF PATHOLOGY [facility] [address] [place] [address] * ECG 12 lead (07/21/2017 5:10 PM) Only the most recent of 2 results within the time period is included. Component Value Ref Range Ventricular rate 89 Atrial rate 89 SD interval 128 QRSD interval 74 QT interval 384 QTC interval 467 P axis 1 39 QRS axis 1 36 T wave axis 26 EKG impression Normal sinus rhythm-Normal ECG-In automated comparison with ECG of 03-NOV-2012 12:31,-Nonspecific T wave abnormality now evident in Lateral leads- Specimen Performing Laboratory [facility] MUSE [address] [place], [place] [id number] * Potassium level (05/17/2017 7:11 AM) Component Value Ref Range Potassium 3.2 (L) 3.5 - 5.0 mEq/L Specimen Performing Laboratory Plasma specimen [facility] DEPARTMENT OF PATHOLOGY [facility] [address] [place], [place] [id number] * Smear review (05/17/2017 4:00 AM) Component Value Ref Range Platelet slide review Linnea adequate Anisocytosis Moderate Specimen Performing Laboratory [facility] DEPARTMENT OF PATHOLOGY [facility] [address] [place] [id number] * Prothrombin mutation, factor II, by PCR (05/17/2017 4:00 AM) Component Value Ref Range Prothrombin gene mutation Normal Normal Prothrombin gene mutation See link below for PDF Lab ReportComment: Specimen Performing Laboratory Blood [facility] [address] [place] [address] * Beta-2 glycoprotein 1 Abs, IgG & IgM (05/17/2017 4:00 AM) Component Value Ref Range Beta-2 glycoprotein 1 1 0 - 20 antibody, IgG Beta-2 glycoprotein 1 3 0 - 20 antibody, IgM Comment: INTERPRETIVE INFORMATION: [id number] I, IgG and IgM Antibody The persistent presence of IgG and/or IgM beta 2 glycoprotein I (B2GPI) antibodies (greater than 99th percentile) is a laboratory criterion for the diagnosis of antiphospholipid syndrome (APS). Persistence is defined as moderate or high levels of IgG and/or IgM B2GPI antibodies detected in two or more specimens drawn at least 12 weeks apart (J Throm Haemost. 2006;4:295-306). B2GPI results greater than 20 SGU (IgG) and/or SMU (IgM) are considered positive based on the cutoff values established for this test. International reference materials and consensus units for anti-B2GPI antibodies have not been established (Clin [place] Acta. 2012;413(1-2):358-60; Arthritis Rheum. 2012;64(1):1-10.). Strong clinical correlation is recommended for a diagnosis of APS. Low positive IgG and IgM B2GPI antibody levels should be interpreted in light of APS-specific clinical manifestations and/or other criteria phospholipid antibody tests. Performed by [facility], [address] [place] [id number] [email or web address], Keegan Garcia MD - Lab. Director Specimen Performing Laboratory [facility] [address] [place] [id number] * Lupus anticoagulant panel (05/17/2017 4:00 AM) Component Value Ref Range Prothrombin time 14.7 12.0 - 15.0 sec INR 1.1 Comment: The International Normalized Ratio (INR) is a therapeutic monitoring tool for patients who are stable on oral anticoagulant therapy. An INR of 2.0-3.0 is suggested for deep vein thrombosis/pulmonary embolism. PTT 30.8 23.0 - 36.0 sec Comment: PTT therapeutic range for unfractionated heparin is 61.0-112.0 seconds which corresponds to Anti-Xa 0.3-0.7 U/ml. PTT lupus anticoagulant 30.8 27.0 - 38.0 sec Comment: Lupus anticoagulant (LA) panel consists of PT, PTT, PTT-LA, and DRVVT. If the PTT-LA is above the normal range, the hexagonal phospholipid will be performed. If the DRVVT is above the normal range, the DRVVC confirmatory test will be performed. A normal result for both the DRVVT and the PTT-LA means the patient is negative for lupus anticoagulant. The patient is considered positive for lupus anticoagulant if either the Ratio SCR/CONF or the hexagonal phospholipid is high (positive) on two occassions at least six weeks apart. Clinical confirmation is also required for diagnosis. DRVVT 28.0 (L) 29.0 - 46.0 sec Specimen Performing Laboratory Blood [facility] [place]PARTMENT [place] [address] * Cardiolipin antibodies (05/17/2017 4:00 AM) Component Value Ref Range Cardiolipin IgG 2 0 - 14 GPL Comment: Negative=<15 GPL Indeterminate=15-20 GPL Positive=>20 GPL Cardiolipin IgM 6 0 - 12 MPL Comment: Negative=<13 MPL Indeterminate=13-20 MPL Positive=>20 MPL Specimen Performing Laboratory Blood [facility] [place]PARTMENT [place] [address] * Factor V leiden by PCR (05/17/2017 4:00 AM) Component Value Ref Range Factor V Leiden Normal Factor V Leiden See link below for PDF Lab ReportComment: Specimen Performing Laboratory Blood [facility] [place] [address] * Basic metabolic panel (05/17/2017 4:00 AM) Only the most recent of 4 results within the time period is included. Component Value Ref Range Sodium 139 135 - 148 mEq/L Potassium SEE COMMENT 3.5 - 5.0 mEq/L Comment: Footnote--------- Unable to perform testing, specimen is HEMOLYZED. Recollect requested for Melodie MAGALLON/AmyE notified by [facility] at 05/17/2017 05:35. Chloride 101 98 - 112 mEq/L CO2 22 (L) 24 - 31 mEq/L Anion gap 16 (H) 7 - 15 mEq/L Comment: Starting from September , anion gap calculation no longer incorporates potassium. Please note the change. BUN 5 (L) 6 - 20 mg/dL Creatinine 0.6 0.5 - 0.9 mg/dL Glucose 90 65 - 99 mg/dL Calcium 8.7 8.3 - 10.2 mg/dL Specimen Performing Laboratory Plasma specimen [facility] DEPARTMENT OF PATHOLOGY AND GENOMIC MEDICINE [address] [place] [address] * Pv duplex venous lower extremity (05/16/2017 3:40 PM) Specimen Performing Laboratory [facility] [address] [place] [address] Narrative Vascular Ultrasound Laboratory Lower Extremity Venous Report [address] [place] [address] Pat.Name:BRIGIDA BRAND Pat.ID:[id number] .Date: 05/16/2017 Refer.MD:ENRIQUE MILLIGAN MD Exam Time: 3:07:00 PMStudy Type:LE Venous Height:62inWeight:216lb BSA: 1.98 m2 DOBAge:1980,36Y Sex: FEMALESonogrphr: Joseph Broussard, RVT, [facility] Pat. Stat.:Inpatient Room:[address] TapeVol: , CPT - 4: 77894 Echo Event ID:[id number] Order ID:[id number] Reason for Study:PE; evaluate for DVT. PMH of HTN, RA, GERD, HLD, obesity. Race:C SUMMARY: DUPLEX SCAN OBSERVATIONS Deep VeinsSuperficial Veins RightLeft RightLeft EIV GSV (prox) NormalNormal CFV Normal Normal (above knee) Femoral Normal Normal GSV (dist) Normal Normal Profunda Normal Normal (below knee) Popliteal Normal Normal PT (prox) Normal NormalSSV PT (dist) Normal Normal Peroneal Normal Normal RIGHT: There is normal compressibility with no evidence of echogenic material noted within the lumen of the visualized veins.Colorflow and Doppler signals are normal. LEFT:There is normal compressibility with no evidence of echogenic material noted within the lumen of the visualized veins.Colorflow and Doppler signals are normal. PRELIMINARY FINDINGS 1. No evidence of venous thrombosis in the visualized veins. PHYSICIAN INTERPRETATION 1.Venous examination of the both lower extremities demonstrates no evidence of venous thrombosis. Signed 05/16/2017 06:21 PM Newton Santamaria MD Procedure Note Interface, Radiology Results In - 05/16/2017 6:22 PM [facility] Vascular Ultrasound Laboratory Lower Extremity Venous Report [address] [place] [address] Pat.Name: BRIGIDA BRAND Pat.ID: [id number] .Date: 05/16/2017 Refer.MD: ENRIQUE MILLIGAN MD Exam Time: 3:07:00 PM Study Type:LE Venous Height: 62in Weight: 216lb BSA: 1.98 m2 Age: 3 1980,36Y Sex: FEMALE Sonogrphr: Joseph Broussard RVT, JEFF Pat. Stat.:Inpatient Room: [address] Tape Vol: MK, CPT - 4: 53070 Echo Event ID:[id number] Order ID: [id number] Reason for Study:PE; evaluate for DVT. PMH of HTN, RA, GERD, HLD, obesity. Race: C SUMMARY: DUPLEX SCAN OBSERVATIONS Deep Veins Superficial Veins Right Left Right Left EIV GSV (prox) Normal Normal CFV Normal Normal (above knee) Femoral Normal Normal GSV (dist) Normal Normal Profunda Normal Normal (below knee) Popliteal Normal Normal PT (prox) Normal Normal SSV PT (dist) Normal Normal Peroneal Normal Normal RIGHT: There is normal compressibility with no evidence of echogenic material noted within the lumen of the visualized veins.Colorflow and Doppler signals are normal. LEFT:There is normal compressibility with no evidence of echogenic material noted within the lumen of the visualized veins.Colorflow and Doppler signals are normal. PRELIMINARY FINDINGS 1. No evidence of venous thrombosis in the visualized veins. PHYSICIAN INTERPRETATION 1. Venous examination of the both lower extremities demonstrates no evidence of venous thrombosis. Signed 05/16/2017 06:21 PM Newton Santamaria MD * CBC hemogram (05/16/2017 6:15 AM) Component Value Ref Range WBC 5.51 4.50 - 11.00 k/uL RBC 3.76 (L) 4.20 - 5.50 m/uL HGB 11.2 (L) 12.0 - 16.0 g/dL HCT 35.1 (L) 37.0 - 47.0 % MCV 93.4 82.0 - 100.0 fL MCH 29.8 27.0 - 34.0 pg MCHC 31.9 31.0 - 37.0 g/dL RDW - SD 49.6 37.0 - 55.0 fL MPV 12.0 8.8 - 13.2 fL Platelet count 208 150 - 400 k/uL Nucleated RBC 0.00 /100 WBC Specimen Performing Laboratory Blood [facility] DEPARTMENT OF PATHOLOGY AND GENOMIC MEDICINE [address] [place] [address] * Urinalysis screen and microscopy, with reflex to culture (05/15/2017 10:40 PM) Only the most recent of 2 results within the time period is included. Component Value Ref Range Specimen site Clean catch Color, UA Straw Appearance, UA Cloudy Specific gravity, UA >1.060 (H) 1.001 - 1.035 pH, UA 5.0 5.0 - 8.5 Protein, UA Negative Negative Glucose, UA Negative Negative Ketones, UA 2+ (A) Negative Bilirubin, UA Negative Negative Blood, UA Negative Negative Nitrite, UA Negative Negative Urobilinogen, UA 2.0 (A) <2.0 Leukocyte esterase, UA Negative Negative Epithelial cells, UA 5 /HPF WBC, UA None seen 0 - 4 /HPF RBC, UA 5 (H) 0 - 2 /HPF Bacteria, UA None seen None seen Yeast, UA None seen Yeast with pseudohyphae, None seen UA Specimen Performing Laboratory Urine [facility] DEPARTMENT OF PATHOLOGY AND [facility] [address] [place] [address] * Urine culture (05/15/2017 10:40 PM) Only the most recent of 2 results within the time period is included. Component Value Ref Range Urine culture SEE COMMENTComment: Bacteriuria screen negative. Specimen Performing Laboratory [facility] DEPARTMENT OF PATHOLOGY AND GENOMIC MEDICINE [address] [place] [address] * CT Abdomen Pelvis W Contrast (05/15/2017 9:09 PM) Specimen Performing Laboratory [address] [address] Narrative EXAMINATION:CT ABDOMEN PELVIS W CONTRAST CLINICAL HISTORY:[id number]. fever and pain TECHNIQUE: Multiple axial images of the abdomen and pelvis were obtained following intravenous administration of iodinated contrast. Sagittal and coronal computerized reformatted images were also obtained. CT imaging was performed with iterative reconstruction technique and/or automated exposure control to reduce radiation dose. COMPARISON:None. IMPRESSION: Patient is status post cholecystectomy. Focal fatty infiltration along the falciform ligament is identified. Spleen, pancreas, adrenal glands are normal. Punctate nonobstructive calculus is seen of superior pole of right kidney. Simple cysts are seen of the left kidney. No hydronephrosis or hydroureter. The bladder is normal. Arising from the left ovary, there is a 5 x 4.5 cm cyst. This would be better assessed with pelvic ultrasound. No free intraperitoneal fluid or air. Appendix is normal. No gastrointestinal tract obstruction. Postoperative appearance of the stomach and small bowel. In the right breast, there is a 2.8 x 2.3 cm lobulated opacity that is indeterminate. Further evaluation with breast ultrasound would be of benefit on nonemergent basis. No acute osseous abnormalities. CONCLUSION: Punctate nonspecific of calculus is seen of superior pole of right kidney. Arising from left ovary, a 5 x 4.5 cm cyst is seen. This would be better assessed with pelvic ultrasound. A 2.8 x 2.3 cm lobulated opacity in the right breast is indeterminate and would be better assessed with breast ultrasound on nonemergent basis. [facility]-[id number] Procedure Note [facility], Radiology Results Incoming - 05/15/2017 9:26 PM [facility] EXAMINATION: CT ABDOMEN PELVIS W CONTRAST CLINICAL HISTORY: [id number] . fever and pain TECHNIQUE: Multiple axial images of the abdomen and pelvis were obtained following intravenous administration of iodinated contrast. Sagittal and coronal computerized reformatted images were also obtained. CT imaging was performed with iterative reconstruction technique and/or automated exposure control to reduce radiation dose. COMPARISON: None. IMPRESSION: Patient is status post cholecystectomy. Focal fatty infiltration along the falciform ligament is identified. Spleen, pancreas, adrenal glands are normal. Punctate nonobstructive calculus is seen of superior pole of right kidney. Simple cysts are seen of the left kidney. No hydronephrosis or hydroureter. The bladder is normal. Arising from the left ovary, there is a 5 x 4.5 cm cyst. This would be better assessed with pelvic ultrasound. No free intraperitoneal fluid or air. Appendix is normal. No gastrointestinal tract obstruction. Postoperative appearance of the stomach and small bowel. In the right breast, there is a 2.8 x 2.3 cm lobulated opacity that is indeterminate. Further evaluation with breast ultrasound would be of benefit on nonemergent basis. No acute osseous abnormalities. CONCLUSION: Punctate nonspecific of calculus is seen of superior pole of right kidney. Arising from left ovary, a 5 x 4.5 cm cyst is seen. This would be better assessed with pelvic ultrasound. A 2.8 x 2.3 cm lobulated opacity in the right breast is indeterminate and would be better assessed with breast ultrasound on nonemergent basis. [facility]-[id number] * Blood culture, aerobic & anaerobic (05/15/2017 6:58 PM) Component Value Ref Range Blood culture isolate No growth after 5 days of incubation. Comment: Specimen Information Specimen Source: Blood Specimen Site: Antecubital, right Specimen Performing Laboratory Blood - Antecubital, [facility] DEPARTMENT OF PATHOLOGY AND GENOMIC MEDICINE right [address] [place] [address] * XR Chest 2 Vw (05/15/2017 4:59 PM) Specimen Performing Laboratory [facility] [address] [place] [address] Narrative EXAMINATION:XR CHEST 2 VW CLINICAL HISTORY:Fever COMPARISON:11/03/2012. FINDINGS: Two views of the chest demonstrate normal cardiomediastinal silhouette. Pulmonary vasculature is within normal limits. Both lungs are clear. No pleural disease is identified. Regional osseous structures is unremarkable. IMPRESSION: No radiographic evidence of acute cardiopulmonary process or active disease of the chest. [id number] Procedure Note Interface, Radiology Results Incoming - 05/15/2017 5:04 PM [facility] EXAMINATION: XR CHEST 2 VW CLINICAL HISTORY: Fever COMPARISON: 11/03/2012. FINDINGS: Two views of the chest demonstrate normal cardiomediastinal silhouette. Pulmonary vasculature is within normal limits. Both lungs are clear. No pleural disease is identified. Regional osseous structures is unremarkable. IMPRESSION: No radiographic evidence of acute cardiopulmonary process or active disease of the chest. [facility] [id number] * Lactic acid level (05/15/2017 4:19 PM) Component Value Ref Range Lactic acid 1.8 0.5 - 2.2 mmol/L Specimen Performing Laboratory Plasma specimen [facility] DEPARTMENT OF PATHOLOGY AND GENOMIC MEDICINE [address] [place] [address] * Amylase level (05/15/2017 4:19 PM) Component Value Ref Range Amylase 34 28 - 100 U/L Specimen Performing Laboratory Plasma specimen [facility] DEPARTMENT OF PATHOLOGY AND GENOMIC MEDICINE [address] [place] [address] * Type and screen (04/13/2017 1:34 PM) Component Value Ref Range ABO grouping O Rh type POS Antibody screen (gel) NEG Specimen Performing Laboratory Blood [facility] DEPARTMENT OF PATHOLOGY AND GENOMIC MEDICINE [address] [place] [address] after 07/21/2016 Insurance Payer Benefit Subscriber ID Type Phone Address Plan / Group [employer]AN[employer] TEXAN[employer]US [id number] [facility] MEDICAID MEDICAID [id number] Medicaid
[2017-07-22] MEDS ORDERED: SODIUM CHLORIDE 0.9% 1000ML 1,000 ML ONE (18:30)
[2017-07-22] MEDS ORDERED: ONDANSETRON HCL 4 MG ORAL DISINTEGRATING TAB SL ONE (19:00)
[2017-07-22] MEDS ORDERED: POTASSIUM CHLORIDE 20 MEQ TAB CR PO ONE (20:00)
[2017-07-22] MEDS ORDERED: ACETAMINOPHEN 325 MG TAB PO ONE (22:00)
[2017-07-22] MEDS ORDERED: TYLENOL WITH C1 EACH PO (22:23)
[2017-07-22 22:58] VITALS: BP 135/80
[2017-07-23] MEDS ORDERED: DICYCLOMINE HCL 20 MG TAB PO ONE (00:45)
== END 2017-07-22 22:45 | disposition home or self-care (01) ==
LOC: FSED 18:13
DX: R06.00 Dyspnea, unspecified (principal); R10.32 Left lower quadrant pain; R10.12 Left upper quadrant pain; N83.9 Noninflammatory disorder of ovary, fallopian tube and broad ligament, unspecified; Z98.84 Bariatric surgery status
CPT/HCPCS: 71260; 74176; 80048; 85025; 93005; 99283; J7030

== ENCOUNTER 2017-08-17 20:05 | Emergency (ER) | payer OTHER, MEDICARE ==
[~2017-08-17] VITALS: Ht 157.5 cm; Wt 89.4 kg
[~2017-08-17 20:05] MED LIST changes: +TYLENOL WITH C1 EACH PO
--- OUTSIDE RECORDS SUMMARY | 2017-08-17 20:09 | XMS REPORT | Clinical Summary ---
Author Author [facility] Address Unknown Phone Unavailable Care Team Providers Care Bass Fisher Name Role Phone Alcon Gonzales DO PCP Allergies Active Allergy Reactions Severity Noted Date Comments Adhesive Tape-Silicones Itching, Rash Low 04/13/2017 Ciprofloxacin Rash, Shortness Of Breath High 10/15/2015 Levofloxacin Rash Low 02/25/2017 Swelling and trouble [...] Facility Date Administered Medication potassium chloride 20 mEq oral Once 05/17/20 Active ([facility]) CR tablet 20 mEq 17 Active Problems Problem Noted Date S/P gastric bypass 04/21/2017 Encounters Date Type Specialty Care Team Description 07/29/2017 Telephone General Surgery Lacey Benson PA 07/23/2017 Telephone General Surgery Lacey Benson PA 07/23/2017 Telephone General Surgery Lacey Benson PA 07/21/2017 Emergency Emergency Medicine Cruz Ruiz MD Chest pain, unspecified - type (Primary Dx) 07/22/2017 07/21/2017 Telephone General Surgery Lacey Benson PA 07/21/2017 Telephone General Surgery Lacey Benson PA 05/29/2017 Office Visit General Surgery Lacey Benson PA Intestinal malabsorption, unspecified type (Primary Dx); Weight loss; Iron deficiency anemia, unspecified iron deficiency anemia type; Gastroesophageal reflux disease without esophagitis; Essential hypertension, benign; Fibromyalgia; Obstructive sleep apnea; Hyperlipidemia, unspecified hyperlipidemia type; Non-intractable vomiting with nausea, unspecified vomiting type 05/18/2017 Telephone General Surgery Lacey Benson PA 05/15/2017 Emergency Orthopedic Surgery James Aguilar MD S/P gastric bypass - Enrique Milligan MD (Primary Dx) 05/17/2017 04/29/2017 Office Visit General Surgery Lacey Benson PA S/P bariatric surgery (Primary Dx); BMI 40.0-44.9, adult; Obstructive sleep apnea; Essential hypertension; Gastroesophageal reflux disease without esophagitis; Fibromyalgia 04/22/2017 Patient Quality Lara Herrmann RN Outreach 04/21/2017 [facility] General Surgery Enrique Milligan MD - Encounter [...] Morbid obesity due to excess calories (Primary Dx); Benign essential hypertension; Obstructive sleep apnea syndrome; Gastroesophageal reflux disease without esophagitis; Hyperlipidemia, unspecified hyperlipidemia type 02/25/2017 Office Visit General Surgery Enrique Milligan MD Morbid obesity due to excess calories (Primary Dx); Essential hypertension; Hyperlipidemia, unspecified hyperlipidemia type; Obstructive sleep apnea; Gastroesophageal reflux disease, esophagitis presence not specified after 08/16/2016 Family History Medical History Relation Name Comments Wyarno's disease Maternal Grandfather Arthritis Maternal Grandmother Diabetes [...] Taken Blood Pressure 130/76 07/21/2017 11:15 PM CLAY DRY PRESS OPERATOR Pulse 76 07/21/2017 11:15 PM CLAY DRY PRESS OPERATOR Temperature 36.8 C (98.2 F) 07/21/2017 4:45 PM CLAY DRY PRESS OPERATOR Respiratory Rate 18 07/21/2017 11:15 PM CLAY DRY PRESS OPERATOR Oxygen Saturation 97% 07/21/2017 11:15 PM CLAY DRY PRESS OPERATOR Inhaled Oxygen - - Concentration Weight 101 kg (221 lb 9.6 oz) 05/29/2017 9:41 AM CLAY DRY PRESS OPERATOR Height 157.5 cm (5' 2") 07/21/2017 4:56 PM CLAY DRY PRESS OPERATOR Body Mass Index 40.53 05/29/2017 9:41 AM CLAY DRY PRESS OPERATOR Plan of Treatment Date Type Specialty Care Team Description 09/04/2017 Office Visit General Surgery Lacey Benson PA [address] [place] [address] [phone] 10/28/2017 Office Visit General Surgery Enrique Milligan MD [address] [place] [address] Health Maintenance Due Date Last Done Comments PAP SMEAR 09/25/2000 INFLUENZA VACCINE Completed 03/23/2017, 04/01/2016, 03/26/2015, Additional history exists Procedures Procedure Name Priority Date/Time Associated Diagnosis Comments IN AN ELECTIVE Routine 04/21/2017 ENDOTRACHEAL AIRWAY 10:53 AM CLAY DRY PRESS OPERATOR Procedure Note - Cindy Arzola, GUNNERY/ORDNANCE OFFICER - 04/21/2017 10:47 AM CLAY DRY PRESS OPERATOR Airway Date/Time: 04/21/2017 10:23 AM Performed by: [...] Morbid obesity GASTRIC BYPASS W/ 10:30 AM CLAY DRY PRESS OPERATOR INTRAOPERATIVE ENDOSCOPY Case Notes BMI 45.4 Special Needs BMI 45.4 after 08/16/2016 Results * CT Angiogram Pe Chest (07/21/2017 10:55 PM) Only the most recent of 2 results within the time period is included. Specimen Performing Laboratory [address] ANGIOGRAM PE CHEST CLINICAL INDICATION: [...] Lungs without focal or confluent airspace consolidation. [facility]-[id number] Procedure Note [facility], Radiology Results Incoming - 07/21/2017 11:04 PM CLAY DRY PRESS OPERATOR CT ANGIOGRAM PE CHEST CLINICAL INDICATION: chest [...] Lungs without focal or confluent airspace consolidation. [facility]-[id number] * Estimated GFR (07/21/2017 10:43 PM) Only [...] and Americans. Specimen Performing Laboratory Plasma specimen [facility] DEPARTMENT OF PATHOLOGY AND GENOMIC MEDICINE [address] [place] [address] * Troponin (07/21/2017 10:43 PM) Only the [...] myocardial injury. Specimen Performing Laboratory Plasma specimen [facility] DEPARTMENT OF PATHOLOGY AND GENOMIC MEDICINE [address] [place] [address] * Partial thromboplastin time, activated (07/21/2017 10:43 PM) Only the most recent of 3 results within the time period is included. Component Value Ref Range PTT 41.9 (H) 23.0 - 36.0 sec Comment: PTT therapeutic range for unfractionated heparin is 61.0-112.0 seconds which corresponds to Anti-Xa 0.3-0.7 U/ml. Specimen Performing Laboratory Blood [facility] DEPARTMENT OF PATHOLOGY AND [facility] MED[facility] [address] [place] [address] * Prothrombin time with INR (07/21/2017 10:43 PM) Component Value Ref Range Prothrombin time 22.3 (H) 12.0 - 15.0 sec INR 1.9 Comment: The International Normalized Ratio (INR) is a therapeutic monitoring tool for patients who are stable on oral anticoagulant therapy. An INR of 2.0-3.0 is suggested for deep vein thrombosis/pulmonary embolism. Specimen Performing Laboratory Blood [facility] DEPARTMENT OF PATHOLOGY AND [place] [id number] * D-dimer (07/21/2017 10:43 PM) Component Value [...] sepsis, and malignancies. Specimen Performing Laboratory Blood [facility] DEPARTMENT OF PATHOLOGY AND [facility] MEDICINE [address] [place], [place] [phone] * Lipase level (07/21/2017 10:43 PM) Only the most recent of 2 results within the time period is included. Component Value Ref Range Lipase 14 13 - 60 U/L Specimen Performing Laboratory Plasma specimen [facility] DEPARTMENT OF PATHOLOGY AND [facility] [address] [place], [place] [phone] * Comprehensive metabolic panel (07/21/2017 10:43 PM) [...] Protein 6.6 6.3 - 8.3 g/dL Comment: [place] 4.6-7.0 g/dL 1 week 4.4-7.6 g/dL 7 [...] 1.2 mg/dL Specimen Performing Laboratory Plasma specimen [facility] DEPARTMENT OF PATHOLOGY AND GENOMIC MEDICINE [address] [place] [address] * CBC with platelet and differential (07/21/2017 [...] (promyelocytes, myelocytes, metamyelocytes) Specimen Performing Laboratory Blood [facility] DEPARTMENT OF PATHOLOGY AND GENOMIC MEDICINE [address] [place] [address] * B natriuretic peptide (07/21/2017 8:19 PM) Component Value Ref Range BNP 13 0 - 100 pg/mL Specimen Performing Laboratory Blood [facility] DEPARTMENT OF PATHOLOGY AND [facility] [address] [place] [address] * ECG 12 lead (07/21/2017 5:10 PM) Only the most recent of 2 results within the time period is included. Component Value Ref Range Ventricular rate 89 Atrial rate 89 IN interval 128 QRSD interval 74 QT interval 384 QTC interval 467 P axis 1 39 QRS axis 1 36 T wave axis 26 EKG impression Normal sinus rhythm-Normal ECG-In automated comparison with ECG of 03-NOV-2012 12:31,-Nonspecific T wave abnormality now evident in Lateral leads- Specimen Performing Laboratory [facility] MUSE [address] [place], [place] [phone] * Potassium level (05/17/2017 7:11 AM) Component Value Ref Range Potassium 3.2 (L) 3.5 - 5.0 mEq/L Specimen Performing Laboratory Plasma specimen [facility] DEPARTMENT OF PATHOLOGY AND [address] [address] * Smear review (05/17/2017 4:00 AM) Component Value Ref Range Platelet slide review Linnea adequate Anisocytosis Moderate Specimen Performing Laboratory [facility] DEPARTMENT OF PATHOLOGY AND GENOMIC MEDICINE [address] [place] [address] * Prothrombin mutation, factor II, by PCR (05/17/2017 4:00 AM) Component Value Ref Range Prothrombin gene mutation Normal Normal Prothrombin gene mutation See link below for PDF Lab ReportComment: Specimen Performing Laboratory Blood [facility] DEPARTMENT OF PATHOLOGY AND GENOMIC MEDICINE [address] [place], [place] [phone] * Beta-2 glycoprotein 1 Abs, IgG & IgM (05/17/2017 4:00 AM) Component Value Ref Range Beta-2 glycoprotein 1 1 0 - 20 antibody, IgG Beta-2 glycoprotein 1 3 0 - 20 antibody, IgM Comment: INTERPRETIVE INFORMATION: [id number] I, IgG and IgM Antibody The persistent [...] other criteria phospholipid antibody tests. Performed by [facility], [address] [place] [address] [email or web address], Keegan Garcia MD - Lab. Director Specimen Performing Laboratory Serum [facility] [address] [place] [address] * Lupus anticoagulant panel (05/17/2017 4:00 AM) [...] - 46.0 sec Specimen Performing Laboratory Blood [facility] DEPARTMENT OF PATHOLOGY AND GENOMIC MEDICINE [address] [place] [address] * Cardiolipin antibodies (05/17/2017 4:00 AM) Component Value Ref Range Cardiolipin IgG 2 0 - 14 GPL Comment: Negative=<15 GPL Indeterminate=15-20 GPL Positive=>20 GPL Cardiolipin IgM 6 0 - 12 MPL Comment: Negative=<13 MPL Indeterminate=13-20 MPL Positive=>20 MPL Specimen Performing Laboratory Blood [facility] DEPARTMENT OF PATHOLOGY AND [facility] [address] [place] [address] * Factor V leiden by PCR (05/17/2017 4:00 AM) Component Value Ref Range Factor V Leiden Normal Factor V Leiden See link below for PDF Lab ReportComment: Specimen Performing Laboratory Blood [facility] DEPARTMENT OF PATHOLOGY AND [facility] [address] [place], [place] [phone] * Basic metabolic panel (05/17/2017 4:00 AM) Only the most recent of 4 results within the time period is included. Component Value Ref Range Sodium 139 135 - 148 mEq/L Potassium SEE COMMENT 3.5 - 5.0 mEq/L Comment: Footnote--------- Unable to perform testing, specimen is HEMOLYZED. Recollect requested for Melodie MAGALLON/AmyE notified by [facility] at 05/17/2017 05:35. Chloride 101 98 - [...] 10.2 mg/dL Specimen Performing Laboratory Plasma specimen [facility] DEPARTMENT OF PATHOLOGY AND GENOMIC MEDICINE [address] [place] [address] * Pv duplex venous lower extremity (05/16/2017 3:40 PM) Specimen Performing Laboratory [facility] [address] [place] [address] Narrative Vascular Ultrasound Laboratory Lower Extremity Venous Report [address] [place] [address] Pat.Name:BRIGIDA BRAND Pat.ID:[id number] St.Date: 05/16/2017 Refer.MD:ENRIQUE MILLIGAN MD Exam Time: 3:07:00 PMStudy Type:LE Venous Height:62inWeight:216lb BSA: 1.98 m2 DOBAge:1980,36Y Sex: FEMALESonogrphr: Joseph Broussard RVT, [facility] Pat. Stat.:Inpatient Room:D1631-U TapeVol: SAMEER, CPT - 4: 05061 Echo Event ID:[id number] Order ID:[id number] Reason for Study:PE; evaluate for DVT. PMH [...] Radiology Results In - 05/16/2017 6:22 PM [facility] Vascular Ultrasound Laboratory Lower Extremity Venous Report [address] [place] [address] Pat.Name: BRIGIDA BRAND.ID: [id number] .Date: 05/16/2017 Refer.MD: ENRIQUE MILLIGAN MD Exam Time: 3:07:00 PM Study Type:LE Venous Height: 62in Weight: 216lb BSA: 1.98 m2 Age: 3 1980,36Y Sex: FEMALE Sonogrphr: Joseph Broussard RVT, RDMS Pat. Stat.:Inpatient Room: P3054-Z Tape Vol: MK, CPT - 4: 78260 Echo Event ID:[id number] Order ID: [id number] Reason for Study:PE; evaluate for DVT. PMH [...] 0.00 /100 WBC Specimen Performing Laboratory Blood [facility] DEPARTMENT OF PATHOLOGY AND GENOMIC MEDICINE [address] [place] [address] * Urinalysis screen and microscopy, with reflex [...] None seen UA Specimen Performing Laboratory Urine [facility] DEPARTMENT OF PATHOLOGY AND GENOMIC MEDICINE [address] [place] [address] * Urine culture (05/15/2017 10:40 PM) Only the most recent of 2 results within the time period is included. Component Value Ref Range Urine culture SEE COMMENTComment: Bacteriuria screen negative. Specimen Performing Laboratory [facility] DEPARTMENT OF PATHOLOGY AND GENOMIC MEDICINE [address] [place], [place] [phone] * CT Abdomen Pelvis W Contrast (05/15/2017 9:09 PM) Specimen Performing Laboratory [place] [id number] Narrative EXAMINATION:CT ABDOMEN PELVIS W CONTRAST CLINICAL [...] assessed with breast ultrasound on nonemergent basis. [facility]-[id number] Procedure Note [facility], Radiology Results Incoming - 05/15/2017 9:26 PM CLAY DRY PRESS OPERATOR EXAMINATION: CT ABDOMEN PELVIS W CONTRAST CLINICAL [...] assessed with breast ultrasound on nonemergent basis. [facility]-[id number] * Blood culture, aerobic & anaerobic (05/15/2017 6:58 PM) Component Value Ref Range Blood culture isolate No growth after 5 days of incubation. Comment: Specimen Information Specimen Source: Blood Specimen Site: Antecubital, right Specimen Performing Laboratory Blood - Antecubital, [facility] DEPARTMENT OF PATHOLOGY AND GENOMIC MEDICINE right [address] [place] [address] * XR Chest 2 Vw (05/15/2017 4:59 PM) Specimen Performing Laboratory [facility] [address] [place] [address] Narrative EXAMINATION:XR CHEST 2 VW CLINICAL HISTORY:Fever COMPARISON:11/03/2012. FINDINGS: Two views of the chest demonstrate normal cardiomediastinal silhouette. Pulmonary vasculature is within normal limits. Both lungs are clear. No pleural disease is identified. Regional osseous structures is unremarkable. IMPRESSION: No radiographic evidence of acute cardiopulmonary process or active disease of the chest. [id number] Procedure Note Interface, Radiology Results Incoming - 05/15/2017 5:04 PM CLAY DRY PRESS OPERATOR EXAMINATION: XR CHEST 2 VW CLINICAL HISTORY: Fever COMPARISON: 11/03/2012. FINDINGS: Two views of the chest demonstrate normal cardiomediastinal silhouette. Pulmonary vasculature is within normal limits. Both lungs are clear. No pleural disease is identified. Regional osseous structures is unremarkable. IMPRESSION: No radiographic evidence of acute cardiopulmonary process or active disease of the chest. [id number] * Lactic acid level (05/15/2017 4:19 PM) Component Value Ref Range Lactic acid 1.8 0.5 - 2.2 mmol/L Specimen Performing Laboratory Plasma specimen [facility] DEPARTMENT OF PATHOLOGY AND GENOMIC MEDICINE [address] [place] [address] * Amylase level (05/15/2017 4:19 PM) Component Value Ref Range Amylase 34 28 - 100 U/L Specimen Performing Laboratory Plasma specimen [facility] DEPARTMENT OF PATHOLOGY AND GENOMIC MEDICINE [address] [place] [address] * Type and screen (04/13/2017 1:34 PM) Component Value Ref Range ABO grouping O Rh type POS Antibody screen (gel) NEG Specimen Performing Laboratory Blood [facility] DEPARTMENT OF PATHOLOGY AND GENOMIC MEDICINE [address] [place] [address] after 08/16/2016 Insurance Payer Benefit Subscriber ID Type Phone Address Plan / Group [employer] TEX[employer]US xxxxxxxxx [facility] MEDICAID MEDICAID xxxxxxxxx Medicaid
--- OUTSIDE RECORDS SUMMARY | 2017-08-17 20:09 | XMS REPORT | Clinical Summary ---
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 Surgically, 4 Khmer single lumen PICC line was placed with its tip at the cavoatrial junction secured in place by means of sutures.. CONCLUSION: Placement of left arm PICC line Signed: Lyndon Lezama MD Report Verified Date/Time:10/23/2016 17:31:07 Reading Location: [place] [address] Angio Body Reading Room Procedure Note Interface, [...] placement of a guidewire centrally. Surgically, 4 Khmer single lumen PICC line was placed with its tip at the cavoatrial junction secured in place by means of sutures.. CONCLUSION: Placement of left arm PICC line Signed: Lyndon Lezama MD Report Verified Date/Time: 10/23/2016 17:31:07 Reading Location: [facility] P048 Angio Body Reading Room * MR spine lumbar without IV contrast (08/26/2016 5:22 PM) Specimen Performing Laboratory [facility] Narrative FINAL REPORT MR Lumbar spine without [...] MD Report Verified Date/Time:08/26/2016 17:35:06 Reading Location: [facility] Radiology Reading Room Procedure Note Interface, External [...] Report Verified Date/Time: 08/26/2016 17:35:06 Reading Location: [facility] Radiology Reading Room after 08/16/2016
--- OUTSIDE RECORDS SUMMARY | 2017-08-17 20:09 | XMS REPORT | Continuity of Care Document ---
Author Author [facility] Organization [facility] Address [address] [place] [address] Phone Unavailable Care Team Providers Care Corporate Legal Intern Name Role Phone NONSTAFF PCP Unavailable Insurance Providers Guarantor Brigida Sepulveda Address [address] [place] [address] Email [email or web address] Payer [employer] Policy Number [id number] Subscriber's Name Brigida Sepulveda Relationship 18 Self / Same As Patient Group Number [id number] Group Name [employer] Effective Date 16 Payer [facility] Policy Number [id number] Subscriber's Name Brigida Sepulveda Relationship 18 Self / Same As Patient Group Number [id number] Group Name UNEMPLOYED Effective Date 13 Advance Directives Directive Response Recorded Date/Time Does the patient have an advance directive? No 11/17/15 8:59am If yes, is advance directive on file with [facility]? No 11/17/15 8:59am If not on file with [facility] will patient provide a copy? No 11/17/15 8:59am Do you have a Directive to Physician? No 07/22/17 6:22pm Do you have a Medical Power of [employer]? No 07/22/17 6:22pm Do you have an out of hospital Do Not Resuscitate Order? No 07/22/17 6:22pm Do you have any special needs we should be aware of? No 07/22/17 6:22pm Do you have a support person here with you today? Yes 07/22/17 6:22pm Did patient receive Notice of Privacy Practices? Yes 07/22/17 6:22pm Did patient receive patient rights and responsibilities? Yes 07/22/17 6:22pm Problems Medical Problem Onset Date Status Anemia 11/17/2015 Acute CHF (congestive heart failure) 10/16/2015 Acute Chest pain 10/16/2015 Acute Leukocytosis 10/16/2015 Acute SLE (systemic lupus erythematosus) 10/16/2015 Acute UTI (urinary tract infection) 07/10/2015 Acute Medications Current Home Medications Medication Dose Units Route Directions Days Qty Instructions Start Date Acetaminophen With Codeine (Tylenol With Codeine #3 Tablet) 1 Each Tablet 300 Mg Oral Every 4 Hours as needed for Pain 20 Tab 07/22/17 Adalimumab (Humira) 40 Mg/0.8 Ml Kit 40 Mg Sub-Q Use As Directed Albuterol Sulfate (Albuterol Sulfate Hfa) 8.5 Gm Hfa.aer.ad 108 Mcg Inhalation As Needed Azathioprine (Imuran) 50 Mg Tablet 250 Mg Oral Daily Bupropion Hcl (Wellbutrin) 100 Mg Tablet 300 Mg Oral Daily Diphenhydramine Hcl (Benadryl) 25 Mg Capsule 12.5 Mg Oral Every 6 Hours as needed for Na 30 11/23/15 Duloxetine Hcl (Cymbalta) 30 Mg Capsule.dr 30 Mg Oral Daily 30 Cap Ferrous Sulfate (Feosol) 325 Mg Tablet 325 Mg Oral Twice Daily With Meals 30 Days 10/22/15 Folic Acid 1 Mg Tablet 1 Mg Oral Daily 30 Tab 10/22/15 Gabapentin 300 Mg Capsule 1,200 Kg Oral Every 6 Hours 60 Cap Hydroxychloroquine Sulfate (Plaquenil) 200 Mg Tab 200 Mg Oral Twice A Day Lactobacillus Acidophilus 1 Tab Cap 1 Tab Oral Three Times Daily With Meals 90 10/22/15 Levocarnitine Tartrate (L-Carnitine) 500 Mg Capsule 500 Mg Oral Twice A Day 90 Days 11/23/15 Levocetirizine Dihydrochloride 5 Mg Tablet 5 Mg Oral Daily Losartan Potassium (Cozaar) 100 Mg Tablet 50 Mg Oral Bedtime 30 Days 10/22/15 Magnesium Oxide 400 Mg Tablet 400 Mg Oral Twice A Day 90 Days 11/22 Meloxicam 15 Mg Tablet 15 Mg Oral Daily Metoprolol Tartrate 50 Mg Tablet 50 Mg Oral Twice A Day Montelukast Sodium 10 Mg Tablet 10 Mg Oral Daily 30 Tab Ondansetron (Zofran Odt) 4 Mg Tab.rapdis 8 Mg Sublingual Every 6 Hours Ondansetron Hcl 8 Mg Tablet 8 Mg Oral Every 8 Hours as needed for Nausea 30 11/23/15 Pantoprazole Sodium 20 Mg Tablet.dr 40 Mg Oral Daily Potassium Chloride 10 Meq Tablet.er 10 Meq Oral Twice A Day Pregabalin (Lyrica) 75 Mg Cap 75 Mg Oral Twice A Day 30 Cap Quetiapine Fumarate (Seroquel) 50 Mg Tablet 50 Mg Oral Bedtime Ribose (D-Ribose) 1 Gm Powder 5 Gm Oral Twice A Day 90 Days Ropinirole Hcl 1 Mg Tablet 1 Mg Oral Three Times A Day 30 Tab Sucralfate (Carafate) 1 Gm/10 Ml Oral.susp 1 Gm Oral Every 6 Hours Tizanidine Hcl 4 Mg Tablet 4 Mg Oral Every 6 Hours Tramadol Hcl (Ultram) 50 Mg Tablet 50 Tab Oral Daily as needed for Pain Ubidecarenone (Coq-10) 100 Mg Capsule 400 Mg Oral Twice A Day 90 Days 11/23/15 Valacyclovir Hcl (Valtrex) 500 Mg Tab 500 Mg Oral Daily Valsartan (Diovan) 160 Mg Tab 320 Mg Oral Daily 60 Tab Past Home Medications Medication Directions Ordered Status Amoxicillin/Potassium Clav (Augmentin 875-125 Tablet) 1 Each Tablet, 1 Each Oral Twice A Day 10/22/15 Discontinued Azathioprine (Imuran) 50 Mg Tablet, 150 Mg Oral Daily Discontinued Esomeprazole Magnesium (Nexium) 40 Mg Capsule.dr, 40 Mg Oral Daily Discontinued Furosemide (Lasix) 40 Mg Tablet, 40 Mg Oral Twice A Day Discontinued Furosemide 40 Mg Tablet, 40 Mg Oral Daily Discontinued Losartan Potassium 100 Mg Tablet, 100 Mg Oral Bedtime Discontinued Meloxicam (Mobic) 15 Mg Tablet, 15 Mg Oral Daily Discontinued Metoprolol Succinate (Toprol Xl) 50 Mg Tab.er.24h, 50 Mg Oral Daily Discontinued Microbid , 100 Mg Oral Daily Discontinued Nebivolol Hcl (Bystolic) 20 Mg Tablet, 10 Mg Oral Daily Discontinued Ranitidine Hcl 300 Mg Capsule, 300 Mg Oral Bedtime Discontinued Topiramate (Topamax*) 100 Mg Tablet, 1 Tab Oral Daily Discontinued Social History Social History Problem Response Recorded Date/Time Onset Date Status Hx Psychiatric Problems Y - DEPRESSION 11/17/2015 8:59am Not Applicable Not Applicable Hx Eating Disorder No 11/17/2015 8:59am Not Applicable Not Applicable Hx Substance Use Disorder No 11/17/2015 8:59am Not Applicable Not Applicable Hx Depression Yes 11/17/2015 8:59am Not Applicable Not Applicable Hx Alcohol Use No 11/17/2015 8:59am Not Applicable Not Applicable Hx Substance Use Treatment No 11/17/2015 8:59am Not Applicable Not Applicable Hx Physical Abuse No 11/17/2015 8:59am Not Applicable Not Applicable Smoking Status Start Date Stop Date Never Smoker Hospital Discharge Instructions No hospital discharge instruction information available. Plan of Care Discharge Date 07/22/17 10:45pm Disposition HOME, SELF-CARE Condition at Discharge Stable Instructions/Education Provided Ovarian Cyst Forms Provided Work/School Excuse Prescriptions See Medication Section Referrals [facility] Additional Instructions/Education Call Dr. Perkins, your immigration services officer to follow up re : your ovarian cyst. Take your CD and the report with you. Functional Status No functional status information available. Allergies, Adverse Reactions, Alerts Allergen Type Severity Reaction Status Last Updated ciprofloxacin HCl Allergy Unknown Active 07/21/16 Ciprofloxacin Allergy Unknown Active 07/21/16 Levofloxacin Allergy Severe Active 07/21/16 Immunizations No immunization information available. Vital Signs Acute Vital Signs Vital Response Date/Time Temperature (Fahrenheit) 98.0 degrees F (97.6 - 99.5) 07/22/2017 10:58pm Pulse Pulse Rate (adult) 95 bpm (60 - 90) 07/22/2017 10:58pm Respiratory Rate 16 bpm (12 - 24) 07/22/2017 10:58pm Blood Pressure 135/80 mm Hg 07/22/2017 10:58pm Height 5 ft 2 in 07/22/2017 6:15pm Weight 197 lb 07/22/2017 6:15pm Body Mass Index 36.0 kg/m^2 07/22/2017 6:37pm Results No relevant diagnostic test, laboratory data and/or discharge summary information available. Procedures No procedure information available. Encounters Encounter Location Arrival/Admit Date Discharge/Depart Date Attending Provider Departed Emergency Room [facility] 07/22/17 6:13pm 10:45pm JOSS LYONS MD
[2017-08-17] MEDS ORDERED: HYDROCODONE/APAP 10MG-325MG TAB PO ONE (20:15)
[2017-08-17] MEDS ORDERED: SODIUM CHLORIDE 0.9% 1000ML 1,000 ML IV STA (20:23)
[2017-08-17] MEDS ORDERED: ONDANSETRON HCL INJ 2 MG/ML VIAL IV STA (20:23)
[2017-08-17] MEDS ORDERED: MORPHINE SULFATE 4 MG/ML SYR IV STA (20:23)
[2017-08-17] MEDS ORDERED: MORPHINE SULFATE 2 MG/ML SYR IV NR (20:30)
== END 2017-08-17 20:42 | disposition left against medical advice (07) ==
LOC: ER 20:05
DX: R10.33 Periumbilical pain (principal)

== ENCOUNTER 2018-01-08 07:03 | Emergency (ER) | payer OTHER, MEDICARE ==
[~2018-01-08] VITALS: Ht 157.5 cm; Wt 68.5 kg
[2018-01-08 07:38] LABS: BASOPHILS % 0.5 % (0.0-1.0); EOSINOPHILS # (AUTO) 0.1 (0.0-0.4); EOSINOPHILS % 1.1 % (0.0-6.0); HEMATOCRIT 37.1 % (34.2-44.1); HEMOGLOBIN 12.4 g/dL (12.0-16.0); LYMPHOCYTES # (AUTO) 2.9 (1.0-3.2); LYMPHOCYTES % 36.5 % (18.0-39.1); MEAN CORPUSCULAR HEMOGLOBIN 30.2 pg (28-32); MEAN CORPUSCULAR HGB CONC 33.4 g/dL (31-35); MEAN CORPUSCULAR VOLUME 90.5 fL (81-99); MONOCYTES # (AUTO) 0.6 (0.2-0.8); NEUTROPHILS # (AUTO) 4.4 (2.1-6.9); NEUTROPHILS % 54.7 % (38.7-80.0); PLATELET COUNT 234 x10e3/uL (140-360); RED CELL DISTRIBUTION WIDTH 13.2 % (11.7-14.4)
[2018-01-08 07:51] LABS: ALANINE AMINOTRANSFERASE 6 IU/L (0-55); ALBUMIN 3.8 g/dL (3.5-5.0); ALBUMIN/GLOBULIN RATIO 1.2 (0.8-2.0); ALKALINE PHOSPHATASE 98 IU/L (40-150); ANION GAP 14.6 mmol/L (8-16); BLOOD UREA NITROGEN 8 mg/dL (7-26); BUN/CREATININE RATIO 11 (6-25); CALCIUM 9.2 mg/dL (8.4-10.2); CARBON DIOXIDE 27 mmol/L (22-29); CHLORIDE 102 mmol/L (98-107); CREATINE KINASE 30 IU/L (29-168); EST GLOMERULAR FILTRATION RATE > 60 ML/MIN (60-); GLUCOSE 100 mg/dL (74-118); POTASSIUM 3.6 mmol/L (3.5-5.1); SODIUM 140 mmol/L (136-145)
[2018-01-08 08:10] LABS: THYROID STIMULATING HORMONE 3.482 uIU/mL (0.350-4.940)
[2018-01-08 08:44] LABS: BILIRUBIN,URINE NEGATIVE (NEGATIVE); CLARITY,URINE CLEAR (CLEAR); COLOR,URINE YELLOW (YELLOW); KETONES,URINE NEGATIVE (NEGATIVE); LEUKOCYTE ESTERASE ,URINE TRACE (NEGATIVE); NITRITE,URINE NEGATIVE (NEGATIVE); PROTEIN,URINE DIPSTICK NEGATIVE (NEGATIVE); URINE UROBILINOGEN 0.2 mg/dL (0.2 - 1)
[2018-01-08 09:01] LABS: WBC,URINE (MAN) 0-5 /HPF (0-5)
[2018-01-08 09:02] LABS: BACTERIA,URINE FEW /HPF; EPITHELIAL CELLS,URINE FEW /LPF
--- NOTE | 2018-01-08 09:26 | Diagnostic Imaging Report ---
PROCEDURE: Frontal and lateral views of the chest. COMPARISON: None. INDICATIONS: HEAVY CHEST, HX OF PE FINDINGS: Lines/tubes: None. Lungs: The lungs are well inflated and clear. There is no evidence of pneumonia or pulmonary edema. Pleura: There is no pleural effusion or pneumothorax. Heart and mediastinum: The heart and the mediastinum are normal. Bones: No acute bony abnormality. Upper abdomen: Status post cholecystectomy. IMPRESSION: 1. No acute cardiopulmonary disease. Dictated by: BETHANY WERNER M.D. on 01/08/2018 at 8:49 Electronically approved by: BETHANY WERNER M.D. on 01/08/2018 at 8:49
[2018-01-08 09:55] VITALS: BP 132/78
== END 2018-01-08 10:15 | disposition home or self-care (01) ==
LOC: ER 07:03
DX: E16.2 Hypoglycemia, unspecified (principal); R53.1 Weakness; I10 Essential (primary) hypertension; M32.9 Systemic lupus erythematosus, unspecified; M79.7 Fibromyalgia; Z98.84 Bariatric surgery status
CPT/HCPCS: 36415; 71046; 80053; 81001; 82550; 82553; 82948; 84443; 84484; 85025; 93005; 99284

== ENCOUNTER 2018-10-12 19:46 | Emergency (ER) | payer MEDICARE ==
[~2018-10-12] VITALS: Ht 157.5 cm; Wt 63.5 kg
--- OUTSIDE RECORDS SUMMARY | 2018-10-12 19:50 | XMS REPORT | Clinical Summary ---
Author Author [facility] Organization [facility] Address Unknown Phone Unavailable Care Team Providers Care Switchboard Manager Name Role Phone Alcon Gonzales DO PCP Allergies Comments Active Allergy Reactions Severity Noted Date Adhesive Tape-Silicones Itching, Rash Low 04/13/2017 Ciprofloxacin Rash, High 10/15/2015 Shortness Of Breath Swelling and trouble breathing Levofloxacin Rash Low 02/25/2017 Medications End Date Status Medication Sig Dispensed Refills Start Date Active valACYclovir (VALTREX) Take 500 mg 0 500 MG tablet by mouth nightly. Active fluticasone (FLONASE) 50 2 sprays by 0 mcg/actuation nasal spray Each Nare route every morning. Active levocetirizine (XYZAL) 5 Take 5 mg by 0 MG tablet mouth every morning. Active cyanocobalamin 1,000 Inject 1,000 0 mcg/mL injection mcg into the shoulder, thigh, or buttocks every 30 (thirty) days. Active gabapentin (NEURONTIN) Take 1,200 mg 0 600 mg tablet by mouth 3 (three) times a day. Active rOPINIRole (REQUIP) 1 MG Take 1 mg by 0 tablet mouth 3 (three) times a day. Active pregabalin (LYRICA) 100 Take 100 mg 0 MG capsule by mouth 3 (three) times a day. Active baclofen (LIORESAL) 20 MG Take 20 mg by 0 tablet mouth 3 (three) times a day as needed for muscle spasms. Active golimumab (SIMPONI) 50 Inject 1 Dose 0 mg/0.5 mL syringe under the skin every 30 (thirty) days. Active metoprolol tartrate Take 100 mg 0 (LOPRESSOR) 100 mg tablet by mouth 2 (two) times a day. Active montelukast (SINGULAIR) Take 10 mg by 0 10 mg tablet mouth nightly. Active hydroxychloroquine Take 200 mg 0 (PLAQUENIL) 200 mg tablet by mouth 2 (two) times a day. Active potassium chloride Take 10 mEq 0 (KLOR-CON) 10 MEQ CR by mouth 2 tablet (two) times a day. Active FOLIC ACID ORAL Take 10 mg by 0 mouth every morning. Active torsemide (DEMADEX) 20 MG Take 20 mg by 0 tablet mouth every morning. Active spironolactone Take 25 mg by 0 (ALDACTONE) 25 MG tablet mouth every morning. Active azaTHIOprine (IMURAN) 50 Take 50 mg by 0 mg tablet mouth daily. Active HYDROcodone-acetaminophen TAKE 15 ML(S) 0 (HYCET) 2.5-108.3 mg/5 mL BY MOUTH 7 solution EVERY 6 HOURS NEEDED FOR PAIN. Active NON FORMULARY Bariatric 0 multivitamin, iron, calcium Active CALCIUM CARBONATE/VITAMIN Take by 0 D3 (CALCIUM 500 + D ORAL) mouth. Active IRON,CARB/VIT C/VIT Take by 0 B12/FOLIC (IRON 100 PLUS mouth. ORAL) Active omeprazole (PriLOSEC) 40 TAKE ONE (1) 30 capsule 4 MG capsuleIndications: CAPSULE (40 8 Morbid obesity due to MG TOTAL) BY excess calories (HCC), MOUTH DAILY. Benign essential hypertension, Obstructive sleep apnea syndrome, Gastroesophageal reflux disease without esophagitis, Hyperlipidemia, unspecified hyperlipidemia type 10/30/2017 Discontinued omeprazole (PriLOSEC) 40 Take 1 30 capsule 5 201 MG capsuleIndications: capsule (40 7 Morbid obesity due to mg total) by excess calories (HCC), mouth daily Benign essential for 180 days. 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 S/P gastric bypass 04/21/2017 Encounters Care Team Description Date Type Specialty Lacey Benson PA 03/10/2018 Telephone General Surgery Lacey Benson PA 03/10/2018 Telephone General Surgery Lacey Benson PA 03/10/2018 Telephone General Surgery Lacey Benson PA 12/28/2017 Telephone General Surgery Enrique Cash MD 11/18/2017 Abstract General Surgery Enrique Cash MD 11/18/2017 Abstract General Surgery Enrique Cash MD Morbid obesity due to excess calories; Benign essential hypertension; Obstructive sleep apnea syndrome; Gastroesophageal reflux disease without esophagitis; Hyperlipidemia, unspecified hyperlipidemia type 10/30/2017 Refill General Surgery Enrique Cash MD History of Papa-en-Y gastric bypass (Primary Dx); Morbid obesity due to excess calories; Essential hypertension; Other hyperlipidemia; Obstructive sleep apnea; Gastroesophageal reflux disease, esophagitis presence not specified 10/28/2017 Office Visit General Surgery after 10/11/2017 Family History Medical History Relation Name Comments [place]'s disease Maternal Grandfather Arthritis Maternal Grandmother Diabetes Maternal Grandmother Hypertension Maternal Grandmother Ulcers Maternal Grandmother Diabetes Mother Hypertension Mother Kidney disease Mother Stroke Mother Relation Name Status Comments Maternal Grandfather Maternal Grandmother Alive Mother Alive Social History Date Tobacco Use Types Packs/Day Years Used Never Smoker Smokeless Tobacco: Never Used Alcohol Use Drinks/Week oz/Week Comments No Sex Assigned at Date Recorded Not on file Industry Job Start Date Occupation Not on file Not on file Not on file Travel End Travel History Travel Start No recent travel history available. Last Filed Vital Signs Time Taken Vital Sign Reading 10/28/2017 1:04 PM CDT Blood Pressure 143/75 10/28/2017 1:04 PM CDT Pulse 75 10/28/2017 1:04 PM CDT Temperature 36.1 C (97 F) 10/28/2017 1:04 PM CDT Respiratory Rate 18 10/28/2017 1:04 PM CDT Oxygen Saturation 100% - Inhaled Oxygen - Concentration 10/28/2017 1:04 PM CDT Weight 77.2 kg (170 lb 3.2 oz) 10/28/2017 1:04 PM CDT Height 157.5 cm (5' 2") 10/28/2017 1:04 PM CDT Body Mass Index 31.13 Plan of Treatment Care Team Description Date Type Specialty Enrique Cash MD [address] [address] 10/20/2018 Office Visit General Surgery Enrique Cash MD [address] [id number] 04/20/2019 Office Visit General Surgery Health Maintenance Due Date Last Done Comments CERVICAL CANCER SCREENING 09/25/2000 INFLUENZA VACCINE 01/13/2019 03/23/2017, 04/01/2016, 03/26/2015, Additional history exists Procedures Comments Procedure Name Priority Date/Time Associated Diagnosis VITAMIN B1 LEVEL, WHOLE Routine 12/24/2017 BLOOD 12:00 AM CDT VITAMIN A LEVEL, PLASMA Routine 12/24/2017 OR SERUM 12:00 AM CDT COPPER LEVEL, SERUM Routine 12/24/2017 12:00 AM CDT ZINC LEVEL, SERUM Routine 12/24/2017 12:00 AM CDT FERRITIN LEVEL Routine 12/24/2017 12:00 AM CDT VITAMIN B12 LEVEL Routine 12/24/2017 12:00 AM CDT FOLATE LEVEL Routine 12/24/2017 12:00 AM CDT T3 Routine 12/24/2017 12:00 AM CDT HEMOGLOBIN A1C Routine 12/24/2017 12:00 AM CDT T4, FREE Routine 12/24/2017 12:00 AM CDT THYROID STIMULATING Routine 12/24/2017 HORMONE 12:00 AM CDT PARATHYROID HORMONE Routine 12/24/2017 12:00 AM CDT TOTAL IRON BINDING Routine 12/24/2017 CAPACITY 12:00 AM CDT LIPID PANEL Routine 12/24/2017 12:00 AM CDT COMPREHENSIVE METABOLIC Routine 12/24/2017 PANEL 12:00 AM CDT VITAMIN D 25 HYDROXY Routine 12/24/2017 LEVEL 12:00 AM CDT CBC WITH PLATELET AND Routine 12/24/2017 DIFFERENTIAL 12:00 AM CDT after 10/11/2017 Results * Total iron binding capacity (12/24/2017 12:00 AM CDT) Iron binding capacity 278 250 - 450 ug/dL [facility] Unsaturated iron binding 215 131 - 425 ug/dL [facility] capacity Iron level 63 27 - 159 ug/dL [facility] Iron saturation 23 15 - 55 % [facility] Narrative Performed At [facility]: [facility] [address] [place] [place], [place] Admitting Supervisor: Carlos Alberto Guillen MD, Phone:[phone] Performing Organization Address [facility] Phone Number [facility] * Copper level, serum (12/24/2017 12:00 AM CDT) Copper 117Comment: 72 - 166 ug/dL [facility] Detection Limit=5 Narrative Performed At Performed at:[address] [place], [place] [id number] Admitting Supervisor: Devon Crawford MD, Phone:[phone] Performing Organization Address [facility] Phone Number [facility] * Vitamin B1 level, whole blood (12/24/2017 12:00 AM CDT) Vitamin B1, whole blood 68.8 66.5 - 200.0 nmol/L [facility] Comment: This test was developed and its performance characteristics determined by [facility]. It has not been cleared or approved by the Food and Drug Administration. Narrative Performed At Performed at: [place] [id number] Admitting Supervisor: Devon Crawford MD, Phone:[phone] Performing Organization Address [facility] Phone Number [facility] * Zinc level, serum (12/24/2017 12:00 AM CDT) Zinc 74Comment: 56 - 134 ug/dL [facility] Detection Limit=5 Narrative Performed At Performed at:[address] [place], [place] [id number] Admitting Supervisor: Devon Crawford MD, Phone:[phone] Performing Organization Address [facility] [place] Phone Number [facility] * Vitamin A level, plasma or serum (12/24/2017 12:00 AM CDT) Vitamin A (retinol) 17.9 (L) 31.2 - 89.1 ug/dL [facility] Comment: Reference intervals for vitamin A determined from National Health and Nutrition Examination Survey, 0345-6438. Individuals with vitamin A less than 20 ug/dL are considered vitamin A deficient and those with serum concentrations less than 10 ug/dL are considered severely deficient. This test was developed and its performance characteristics determined by [facility]. It has not been cleared or approved by the Food and Drug Administration. Narrative Performed At Performed at: - [facility] [address] [place], [id number] Admitting Supervisor: Devon Crawford MD, Phone:[phone] Performing Organization Address [facility] [place] Phone Number [facility] * Vitamin D 25 hydroxy level (12/24/2017 12:00 AM CDT) Vitamin D, 25-hydroxy 31.2 30.0 - 100.0 ng/mL [facility] Comment: Vitamin D deficiency has been defined by the [place] of Medicine and an Endocrine Society practice guideline as a level of serum 25-OH vitamin D less than 20 ng/mL (1,2). The Endocrine Society went on to further define vitamin D insufficiency as a level between 21 and 29 ng/mL (2). 1. IOM ([place] of Medicine). 2010. Dietary reference intakes for calcium and D. [place]: The National Academies Press. 2. Favian MF, Beni [place], [place] BELL, et al. Evaluation, treatment, and prevention of vitamin D deficiency: an Endocrine Society clinical practice guideline. JCEM. 2010; 96(7):1911-30. Narrative Performed At Performed at: - [facility] [address] [place], [id number] Admitting Supervisor: Carlos Alberto Guillen MD, Phone:[phone] Performing Organization Address [facility] Phone Number [facility] * CBC with platelet and differential (12/24/2017 12:00 AM CDT) WBC 6.0 3.4 - 10.8 x10E3/uL [facility] RBC 3.98 3.77 - 5.28 x10E6/uL [facility] HGB 11.6 11.1 - 15.9 g/dL [facility] HCT 35.8 34.0 - 46.6 % [facility] MCV 90 79 - 97 fL [facility] MCH 29.1 26.6 - 33.0 pg [facility] MCHC 32.4 31.5 - 35.7 g/dL [facility] RDW 14.2 12.3 - 15.4 % [facility] Platelet count 226 150 - 379 x10E3/uL [facility] Neutrophils 62 Not Estab. % [facility] Lymphocytes 30 Not Estab. % [facility] Monocytes 7 Not Estab. % [facility] Eosinophils 1 Not Estab. % [facility] Basophils 0 Not Estab. % [facility] Neutrophils, absolute 3.7 1.4 - 7.0 x10E3/uL [facility] Lymphocytes, absolute 1.8 0.7 - 3.1 x10E3/uL [facility] Monocytes, absolute 0.4 0.1 - 0.9 x10E3/uL [facility] Eosinophils, absolute 0.1 0.0 - 0.4 x10E3/uL [facility] Basophils, absolute 0.0 0.0 - 0.2 x10E3/uL [facility] Immature granulocytes 0 Not Estab. % [facility] Immature grans (abs) 0.0 0.0 - 0.1 x10E3/uL [facility] Narrative Performed At Performed at: [facility] [address] [place], [place] [id number] Admitting Supervisor: Carlos Alberto Guillen MD, Phone:[phone] Performing Organization Address [facility] [place] Phone Number [facility] * T3 (12/24/2017 12:00 AM CDT) T3 125 71 - 180 ng/dL [facility] Narrative Performed At Performed at: - [facility] [address] [place], [place] [id number] Admitting Supervisor: Carlos Alberto Guillen MD, Phone:[phone] Performing Organization Address [facility] [place] Phone Number [facility] * Thyroid stimulating hormone (12/24/2017 12:00 AM CDT) TSH 1.330 0.450 - 4.500 uIU/mL [facility] Narrative Performed At Performed at: [facility] [address] [place], [place] [id number] Admitting Supervisor: Carlos Alberto Guillen MD, Phone:[phone] Performing Organization Address [facility] [place] Phone Number [facility] * T4, free (12/24/2017 12:00 AM CDT) T4, free 0.88 0.82 - 1.77 ng/dL [facility] Narrative Performed At Performed at: [facility] [address] [place], [place] [id number] Admitting Supervisor: Carlos Alberto Guillen MD, Phone:[phone] Performing Organization Address [facility] [place] Phone Number [facility] * Parathyroid hormone (12/24/2017 12:00 AM CDT) PTH 67 (H) 15 - 65 pg/mL [facility] Narrative Performed At Performed at: [id number] Admitting Supervisor: Carlos Alberto Guillen MD, Phone:[phone] Performing Organization Address [facility] [place] Phone Number [facility] * Hemoglobin A1c (12/24/2017 12:00 AM CDT) Hemoglobin A1C 5.1 4.8 - 5.6 % [facility] Comment: Pre-diabetes: 5.7 - 6.4 Diabetes: >6.4 Glycemic control for adults with diabetes: <7.0 Narrative Performed At Performed at: [id number] Admitting Supervisor: Carlos Alberto Guillen MD, Phone:[phone] Performing Organization Address [facility] [place] Phone Number [facility] * Folate level (12/24/2017 12:00 AM CDT) Folate <2.1 (L) >3.0 ng/mL [facility] Comment: A serum folate concentration of less than 3.1 ng/mL is considered to represent clinical deficiency. Narrative Performed At Performed at:[address] [place] [address] [id number] Admitting Supervisor: Carlos Alberto Guillen MD, Phone:[phone] Performing Organization Address [facility] [place] Phone Number [facility] * Ferritin level (12/24/2017 12:00 AM CDT) Ferritin level 112 15 - 150 ng/mL [facility] Narrative Performed At Performed at:01 - [facility] [place], [id number] Admitting Supervisor: Carlos Alberto Guillen MD, Phone:[phone] Performing Organization Address [facility] [place] Phone Number [facility] * Vitamin B12 level (12/24/2017 12:00 AM CDT) Vitamin B12 575 232 - 1,245 pg/mL [facility] Narrative Performed At Performed at: - [facility] [address] [place], [place] [id number] Admitting Supervisor: Carlos Alberto Guillen MD, Phone:[phone] Performing Organization Address [facility] [place] Phone Number [facility] * Lipid panel (12/24/2017 12:00 AM CDT) Cholesterol 154 100 - 199 mg/dL [facility] Triglycerides 115 0 - 149 mg/dL [facility] HDL cholesterol 40 >39 mg/dL [facility] VLDL cholesterol gabriela 23 5 - 40 mg/dL [facility] LDL cholesterol 91 0 - 99 mg/dL [facility] calculated Non-HDL cholesterol 114 0 - 129 mg/dL [facility] Narrative Performed At Performed at: - [facility] [address] [place], [place] [id number] Admitting Supervisor: Carlos Alberto Guillen MD, Phone:[phone] Performing Organization Address [facility] [place] Phone Number [facility] * Comprehensive metabolic panel (12/24/2017 12:00 AM CDT) Glucose 86 65 - 99 mg/dL [facility] BUN, whole blood 10 6 - 20 mg/dL [facility] Creatinine 0.64 0.57 - 1.00 mg/dL [facility] EGFR Non-Afr. Serbian 114 >59 mL/min/1.73 [facility] EGFR 131 >59 mL/min/1.73 [facility] BUN/creatinine ratio 16 9 - 23 [facility] Sodium 140 134 - 144 mmol/L [facility] Potassium 4.0 3.5 - 5.2 mmol/L [facility] Chloride 100 96 - 106 mmol/L [facility] CO2 25 20 - 29 mmol/L [facility] Calcium 9.0 8.7 - 10.2 mg/dL [facility] Protein 6.2 6.0 - 8.5 g/dL [facility] Albumin, S 4.0 3.5 - 5.5 g/dL [facility] Globulin, total 2.2 1.5 - 4.5 g/dL [facility] Albumin/globulin ratio 1.8 1.2 - 2.2 [facility] Total bilirubin 0.4 0.0 - 1.2 mg/dL [facility] Alkaline phosphatase 94 39 - 117 IU/L [facility] AST 11 0 - 40 IU/L [facility] ALT 6 0 - 32 IU/L [facility] Narrative Performed At Performed at:01 - [facility] [address] [place], [id number] Admitting Supervisor: Carlos Alberto Guillen MD, Phone:[phone] Performing Organization Address City/State/Zipcode Phone Number [facility] after 10/11/2017 Insurance Payer Benefit Subscriber ID Type Phone Address Plan / Group TEXANPLUS TEXANPLUS xxxxxxxxx HMO [facility] MEDICAID MEDICAID xxxxxxxxx Medicaid Advance Directives Patient has advance care planning documents on file. For more information, zeynep e contact: Smith Acosta [address] [place] [address]
--- OUTSIDE RECORDS SUMMARY | 2018-10-12 19:50 | XMS REPORT | Clinical Summary ---
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 Active gabapentin (NEURONTIN) Take 1,200 mg 0 600 MG tablet by mouth 3 (three) times daily . Active rOPINIRole (REQUIP) 1 MG Take 1 mg by 0 tablet mouth 3 (three) times daily. Active ondansetron (ZOFRAN) 8 MG Take 8 mg by 0 tablet mouth every 8 (eight) hours as needed for Nausea. Active ranitidine (ZANTAC) 300 Take 300 mg 0 MG tablet by mouth nightly. Active pregabalin (LYRICA) 100 Take 100 mg 0 MG capsuleIndications: by mouth 3 Fibromyalgia (three) times daily. Active azaTHIOprine (IMURAN) 50 Take 50 mg by 0 mg tablet mouth 3 (three) times daily. Active esomeprazole (NEXIUM) 40 Take 40 mg by 0 MG capsule mouth daily. Active cyanocobalamin (VITAMIN Inject 1,000 0 B-12) 1,000 mcg/mL mcg injectionIndications: intramuscular vitamin B12 deficiency ly every 30 (thirty) days Next dose due 08/12/16. Active dicyclomine (BENTYL) 10 Take 10 mg by 0 MG capsule mouth 4 (four) times daily before meals and nightly. Active golimumab (SIMPONI) 50 Inject 50 mg 0 mg/0.5 mL PnIj subcutaneousl y every 28 days On hold since june. Active valACYclovir (VALTREX) Take 500 mg 0 500 MG tablet by mouth daily. Active hydroxychloroquine Take 400 mg 0 (PLAQUENIL) 200 mg tablet by mouth daily . Active amoxicillin (AMOXIL) 250 Take 250 mg 0 MG capsule by mouth daily. Active sulfaSALAzine Take 500 mg 0 (AZULFIDINE) 500 mg by mouth 2 tablet (two) times daily. Active baclofen (LIORESAL) 20 MG Take 20 mg by 0 tablet mouth 3 (three) times daily. Active metoprolol (LOPRESSOR) Take 100 mg 0 100 MG tablet by mouth 2 (two) times daily. Active torsemide (DEMADEX) 20 MG Take 20 mg by 0 tablet mouth daily. Active potassium chloride Take 10 mEq 0 (KLOR-CON) 10 MEQ CR by mouth 2 tablet (two) times daily. Active acetaminophen-codeine Take 1 tablet 0 (TYLENOL #3) 300-30 mg by mouth per tablet every 4 (four) hours as needed for Pain. Active Problems Problem Noted Date Kidney stone 08/11/2016 Social History Date Tobacco Use Types Packs/Day Years Used Never Smoker Alcohol Use Drinks/Week oz/Week Comments No Sex Assigned at Date Recorded Not on file Industry Job Start Date Occupation Not on file Not on file Not on file Travel End Travel History Travel Start No recent travel history available. Last Filed Vital Signs Not on file Plan of Treatment Not on file Implants Device Identifier Shelf Expiration Date Model / Serial / Lot Implanted Type Area Manufactur er 08/12/2017 [id number] / / [id number] Stent Uret Cntour Inj [id number] Uro Stent LOWRY [id number] - [id number] SCI:UROLOG Implanted: Qty: 1 on 08/13/2016 by Y/GYNECMich Healy MD GY Results Not on fileafter 10/11/2017 Insurance Payer Benefit Subscriber ID Type Phone Address Plan / Group TEXAN[employer]US TEX[employer] xxxxxxxxx [facility] MEDICA[facility] MEDICAID xxxxxxxxx Medicaid OF [place]
[2018-10-12] MEDS ORDERED: FAMOTIDINE 20 MG/2 ML VIAL IV STA (20:24)
[2018-10-12] MEDS ORDERED: KETOROLAC TROMETHAMINE 30 MG/ML VIAL IV STA (20:24)
[2018-10-12] MEDS ORDERED: PROMETHAZINE 12.5MG/ NACL 0.9% 12.5 MG/50 ML BAG IV ONE (20:30)
[2018-10-12] MEDS ORDERED: SODIUM CHLORIDE 0.9% 1000ML 1,000 ML IV SCH (20:30)
[2018-10-12] MEDS ORDERED: FENTANYL CITRATE/PF 100MCG/2 ML INJ IV ONE (23:00)
--- NOTE | 2018-10-12 23:02 | Diagnostic Imaging Report ---
EXAM: CT Abdomen and Pelvis WITHOUT contrast INDICATION: ^[id number] COMPARISON: CT dated 08/26/2013 TECHNIQUE: Abdomen and pelvis were scanned utilizing a multidetector helical scanner from the lung base to the pubic symphysis without administration of IV contrast. Absence of intravenous contrast decreases sensitivity for detection of focal lesions and vascular pathology. Coronal and sagittal reformations were obtained. Routine protocol was performed. IV CONTRAST: None ORAL CONTRAST: Water COMPLICATIONS: None RADIATION DOSE: Total DLP: 635.92 mGy*cm Estimated effective dose: (DLP x 0.015 x size factor) mSv CTDIvol has been reviewed. It is below the limits set by the Radiation Protocol Committee (RPC). FINDINGS: LINES and TUBES: None. LOWER THORAX: Unremarkable HEPATOBILIARY: Hepatomegaly. Unenhanced liver is unremarkable. No biliary ductal dilation. GALLBLADDER: Surgically absent. SPLEEN: No splenomegaly. PANCREAS: No focal masses or ductal dilatation. ADRENALS: No adrenal nodules KIDNEYS/URETERS: No hydronephrosis. Evaluation of renal parenchyma is limited without intravenous contrast. Left renal midpole layering milk of calcium versus a 7 mm calculus. There is also a punctate right renal midpole cortical opacification. No stones. GI TRACT: No abnormal distention, wall thickening, or evidence of bowel obstruction. Evidence of gastric bypass surgery. Appendix is normal. PELVIC ORGANS/BLADDER: Bladder is collapsed, limiting evaluation. Hysterectomy. LYMPH NODES: No lymphadenopathy. VESSELS: Unremarkable. PERITONEUM / RETROPERITONEUM: No free air or fluid. BONES: L5-S1 disc space narrowing. Otherwise, unremarkable. SOFT TISSUES: Unremarkable. IMPRESSION: 1. Limited study without intravenous contrast. 2. Left renal midpole layering milk of calcium versus a 7 mm nonobstructive calculus. 3. Hepatomegaly. 4. No definite evidence of acute inflammatory process in the abdomen/pelvis, considering limitations of unenhanced study. Signed by: Dr. Bob Shelley MD on 10/12/2018 10:59 PM
[2018-10-12] MEDS ORDERED: ONDANSETRON HCL 4 MG ORAL DISINTEGRATING TAB PO ONE (23:30)
[2018-10-12 23:31] VITALS: BP 142/73
== END 2018-10-12 23:38 | disposition home or self-care (01) ==
LOC: FSED 19:46
DX: R11.2 Nausea with vomiting, unspecified (principal); R19.7 Diarrhea, unspecified; R10.84 Generalized abdominal pain; Z88.1 Allergy status to other antibiotic agents; Z98.0 Intestinal bypass and anastomosis status; N20.0 Calculus of kidney
CPT/HCPCS: 74176; 80053; 81003; 85025; 99284; J1885; J2550; J7030